=== PATIENT | male | born 1965 | race Caucasian/White ===

== ENCOUNTER 2018-07-13 01:45 | Outpatient (CLI) | payer OTHER, SELFPAY ==
[2018-07-13 07:49] LABS: HCT 44.1 % (40.0-50.0); HGB 15.4 g/dL (13.5-17.5); Mean Corp. HGB Concentration 34.9 g/dL (32.0-36.0); Mean Corpuscular Hemoglobin 30.9 pg (27.0-33.0); Mean Corpuscular Volume 88.6 fL (80-95); Mean Platelet Volume 10.7 fL (8.0-11.0); Platelet Count 217 x1000/uL (130-400); RBC 4.98 m/cumm (4.50-6.00); White Blood Cell Count 5.82 k/cumm (4.4-10.8)
[2018-07-13 08:49] LABS: ALT 60 U/L (12-78); AST 26 U/L (15-37); Albumin 4.1 g/dL (3.4-5.0); Alkaline Phosphatase 71 U/L (46-116); Anion Gap 10.6 mmol/L (3-11); BUN 23 mg/dL (7-18); Bilirubin, Total 0.6 mg/dL (0.2-1.0); CO2 25.4 mmol/L (21.0-32.0); CREATININE 1.26 mg/dL (0.70-1.30); Calcium 9.1 mg/dL (8.5-10.1); Chloride 105 mmol/L (98-107); Cholesterol 247 mg/dL (50-200); Glucose 89 mg/dL (70-100); HDL Cholesterol 37 mg/dL (40-60); LDL CHOLESTEROL 181 mg/dL (<100); Potassium 4.2 mmol/L (3.5-5.1); Sodium 141 mmol/L (136-145); Total Protein 7.1 g/dL (6.4-8.2); Triglyceride 126 mg/dL (30-150)
== END 2018-07-13 02:05 ==
PROVIDERS: PCP Family Medicine; Visit Provider Family Medicine
DX: Z00.00 Encounter for general adult medical examination without abnormal findings (principal); Z13.220 Encounter for screening for lipoid disorders; Z13.228 Encounter for screening for other metabolic disorders; Z13.0 Encounter for screening for diseases of the blood and blood-forming organs and certain disorders involving the immune mechanism
CPT/HCPCS: 36415; 80053; 80061; 83721; 85027

== ENCOUNTER 2018-08-05 12:42 | Outpatient (CLI) | payer OTHER, SELFPAY ==
--- NOTE | 2018-08-05 10:41 | DI.RAD_ITS ---
SYMPTOMS/DIAGNOSIS: LEFT KNEE PAIN, PATELLOFEMORAL ARTHRALGIA OF BOTH KNEES, M25.562, M22.2X1, M22.2X2, DISORDER OF BILATERAL KNEES, NO TRAUMA LEFT KNEE: Three views were obtained. There is slight hypertrophic spurring of the bones of the knee. No other abnormality seen.
== END 2018-08-05 13:02 ==
PROVIDERS: PCP Family Medicine; Visit Provider Family Medicine
DX: M25.562 Pain in left knee (principal); M22.2X1 Patellofemoral disorders, right knee; M22.2X2 Patellofemoral disorders, left knee; M76.892 Other specified enthesopathies of left lower limb, excluding foot
CPT/HCPCS: 73562

== ENCOUNTER 2019-05-31 07:00 | Outpatient (CLI) | payer OTHER, SELFPAY ==
[2019-05-31 13:13] LABS: HCT 46.4 % (40.0-50.0); HGB 15.7 g/dL (13.5-17.5); Mean Corp. HGB Concentration 33.8 g/dL (32.0-36.0); Mean Corpuscular Hemoglobin 30.3 pg (27.0-33.0); Mean Corpuscular Volume 89.6 fL (80-95); Mean Platelet Volume 10.8 fL (8.0-11.0); Platelet Count 269 x1000/uL (130-400); RBC 5.18 m/cumm (4.50-6.00); RBC Distribution Width 13.5 % (11.8-14.1)
[2019-05-31 13:33] LABS: ALT 78 U/L (16-63); AST 31 U/L (15-37); Albumin 4.4 g/dL (3.4-5.0); Alkaline Phosphatase 85 U/L (46-116); Anion Gap 12.3 mmol/L (3-11); BUN 17 mg/dL (7-18); Bilirubin, Total 0.6 mg/dL (0.2-1.0); CO2 25.7 mmol/L (21.0-32.0); CREATININE 1.25 mg/dL (0.70-1.30); Calcium 9.9 mg/dL (8.5-10.1); Calculated LDL 225 mg/dL; Chloride 104 mmol/L (98-107); Cholesterol 306 mg/dL (50-200); Glucose 97 mg/dL (70-100); HDL Cholesterol 58 mg/dL (40-60); Potassium 4.4 mmol/L (3.5-5.1); Sodium 142 mmol/L (136-145); Total Protein 7.8 g/dL (6.4-8.2); Triglyceride 118 mg/dL (30-150)
== END 2019-05-31 07:20 ==
PROVIDERS: PCP Family Medicine; Visit Provider Family Medicine
DX: E78.5 Hyperlipidemia, unspecified (principal); Z82.49 Family history of ischemic heart disease and other diseases of the circulatory system
CPT/HCPCS: 36415; 80053; 80061; 85027

== ENCOUNTER 2020-07-10 02:06 | Outpatient (CLI) | payer OTHER, SELFPAY ==
[2020-07-10 09:10] LABS: ALT 125 U/L (16-63); AST 60 U/L (15-37); Albumin 4.1 g/dL (3.4-5.0); Alkaline Phosphatase 87 U/L (46-116); Anion Gap 6.4 mmol/L (3-11); BUN 19 mg/dL (7-18); Bilirubin, Total 0.6 mg/dL (0.2-1.0); CO2 28.6 mmol/L (21.0-32.0); CREATININE 1.53 mg/dL (0.70-1.30); Calcium 9.2 mg/dL (8.5-10.1); Calculated LDL 192 mg/dL (<100); Chloride 103 mmol/L (98-107); Cholesterol 259 mg/dL (<200); Estimated GFR 47.67 (mL/min/1.73m2); Glucose 90 mg/dL (74-106); HDL Cholesterol 45 mg/dL (40-60); Potassium 4.5 mmol/L (3.5-5.1); Sodium 138 mmol/L (136-145); Total Protein 7.1 g/dL (6.4-8.2); Triglyceride 112 mg/dL (<150)
== END 2020-07-10 02:26 ==
PROVIDERS: PCP Family Medicine; Visit Provider Family Medicine
DX: Z00.00 Encounter for general adult medical examination without abnormal findings (principal); E78.5 Hyperlipidemia, unspecified; Z82.49 Family history of ischemic heart disease and other diseases of the circulatory system
CPT/HCPCS: 36415; 80053; 80061

== ENCOUNTER 2020-08-01 01:59 | Outpatient (CLI) | payer OTHER, SELFPAY ==
[2020-08-01 11:21] LABS: ALT 113 U/L (16-63); AST 45 U/L (15-37); Albumin 4.1 g/dL (3.4-5.0); Alkaline Phosphatase 90 U/L (46-116); Bilirubin, Direct 0.14 mg/dL (0.00-0.20); Bilirubin, Total 0.7 mg/dL (0.2-1.0); Total Protein 7.2 g/dL (6.4-8.2)
== END 2020-08-01 02:19 ==
PROVIDERS: PCP Family Medicine; Visit Provider Family Medicine
DX: R79.89 Other specified abnormal findings of blood chemistry (principal)
CPT/HCPCS: 36415; 80076

== ENCOUNTER 2020-08-25 01:23 | Outpatient (CLI) | payer OTHER, SELFPAY ==
--- NOTE | 2020-08-25 06:30 | DI.US_ITS ---
EXAM: US ABDOMEN CLINICAL HISTORY: Elevated liver function tests work-up,R79.89 TECHNIQUE: Ultrasound abdomen performed using standard protocol. COMPARISON: No exams were available for comparison FINDINGS: LIVER: The liver is mildly enlarged and shows diffuse moderate increased echogenicity and decreased t hrough transmission, consistent with fatty infiltration.. No focal liver lesions are seen.. GALLBLADDER: No evidence of cholelithiasis. No evidence of wall thickening. No pericholecystic fluid identified. VERMA'S SIGN: Negative. BILIARY SYSTEM: No intrahepatic or extrahepatic biliary ductal dilation. KIDNEYS: Kidneys are symmetric in size. No evidence of renal calculi. No evidence of hydronephrosis. No renal mass identified. 13 millimeter exophytic cyst near the upper pole of the left kidney. PANCREAS: Normal where visualized. SPLEEN: Not enlarged. ABDOMINAL AORTA AND IVC: Visualized portions normal caliber. ASCITES: None seen. IMPRESSION: Moderate hepatic steatosis. DATA REPOSITORY:
== END 2020-08-25 01:43 ==
PROVIDERS: PCP Family Medicine; Visit Provider Family Medicine
DX: K76.0 Fatty (change of) liver, not elsewhere classified (principal); R79.89 Other specified abnormal findings of blood chemistry
CPT/HCPCS: 76700

== ENCOUNTER 2020-09-04 02:36 | Outpatient (CLI) | payer OTHER, SELFPAY ==
[2020-09-04 10:11] LABS: Iron 137 ug/dL (65-175); Total Iron Binding Capacity 332 ug/dL (250-450); Transferrin Sat 41 % (20-55)
[2020-09-04 10:23] LABS: Ferritin 142 ng/mL (26-388); TSH 2.68 uIU/mL (0.36-3.74)
[2020-09-05 10:17] LABS: HBs Antibody, Qual Negative (See Note); HBs Antibody, Quant <3.1 mIU/mL (See Note); Hepatitis B Core Antibody Negative (Negative); Hepatitis B surface Ag Negative (Negative); Hepatitis C Ab w Rflx HCV PCR Negative (Negative)
== END 2020-09-04 02:56 ==
PROVIDERS: PCP Family Medicine; Visit Provider Family Medicine
DX: R79.89 Other specified abnormal findings of blood chemistry (principal); Z11.59 Encounter for screening for other viral diseases
CPT/HCPCS: 36415; 86704; 86706; 86803; 87340; 82728; 83540; 83550; 84443

== ENCOUNTER 2020-12-15 02:47 | Outpatient (CLI) | payer OTHER, SELFPAY ==
[2020-12-15 10:18] LABS: Hemoglobin A1C 5.5 % (<5.7)
[2020-12-15 10:26] LABS: BUN 19 mg/dL (7-18); CREATININE 1.3 mg/dL (0.70-1.30); Calculated LDL 210 mg/dL (<100); Cholesterol 282 mg/dL (<200); Estimated GFR 57.31 (mL/min/1.73m2); HDL Cholesterol 45 mg/dL (40-60); Triglyceride 137 mg/dL (<150)
== END 2020-12-15 02:48 | disposition home or self-care (01) ==
LOC: LBO 02:47
PROVIDERS: PCP Family Medicine; Visit Provider Nurse Practitioner Family
DX: E78.5 Hyperlipidemia, unspecified (principal); R79.89 Other specified abnormal findings of blood chemistry; Z13.1 Encounter for screening for diabetes mellitus
CPT/HCPCS: 36415; 80061; 84520; 82565; 83036

== ENCOUNTER 2021-01-02 02:25 | Outpatient (CLI) | payer OTHER, SELFPAY ==
[2021-01-03 12:54] LABS: COVID-19 RT-PCR UVMMC Result Negative (Negative)
== END 2021-01-02 02:26 | disposition home or self-care (01) ==
LOC: LBO 02:25
PROVIDERS: PCP Family Medicine; Visit Provider Family Medicine
DX: Z20.822 Contact with and (suspected) exposure to COVID-19 (principal)
CPT/HCPCS: U0003

== ENCOUNTER 2021-01-05 02:25 | Outpatient (CLI) | payer OTHER, SELFPAY ==
[2021-01-06 12:23] LABS: COVID-19 RT-PCR UVMMC Result Negative (Negative)
== END 2021-01-05 02:26 | disposition home or self-care (01) ==
LOC: LBO 02:25
PROVIDERS: PCP Family Medicine; Visit Provider Family Medicine
DX: Z20.822 Contact with and (suspected) exposure to COVID-19 (principal)
CPT/HCPCS: U0003

== ENCOUNTER 2021-07-09 02:41 | Outpatient (CLI) | payer OTHER, SELFPAY ==
[2021-07-09 09:54] LABS: Calculated LDL 121 mg/dL (<100); Cholesterol 189 mg/dL (<200); HDL Cholesterol 43 mg/dL (40-60); Triglyceride 126 mg/dL (<150)
== END 2021-07-09 02:42 | disposition home or self-care (01) ==
LOC: LBO 02:42
PROVIDERS: PCP Nurse Practitioner Family; Visit Provider Nurse Practitioner Family
DX: E78.5 Hyperlipidemia, unspecified (principal)
CPT/HCPCS: 36415; 80061

== ENCOUNTER 2021-07-17 16:16 | Outpatient (REF) | payer OTHER, SELFPAY ==
[2021-07-18 19:13] LABS: COVID-19 RT-PCR UVMMC Result Negative (Negative)
== END 2021-07-17 16:17 | disposition home or self-care (01) ==
LOC: LBN 16:16
PROVIDERS: PCP Nurse Practitioner Family; Visit Provider Physician Assistant
DX: Z20.822 Contact with and (suspected) exposure to COVID-19 (principal); R05.8 Other specified cough
CPT/HCPCS: U0003

== ENCOUNTER → 2022-05-16 03:03 | Outpatient (CLI) | payer BC, SELFPAY ==
--- NOTE | 2022-05-16 08:30 | DI.RAD_ITS ---
Exam(s) XR CHEST 2V PA LATERAL EXAM: XR CHEST 2V PA LATERAL CLINICAL HISTORY: Continued cough after COVID in early March, R05.9. TECHNIQUE: 2D digital imaging was performed. COMPARISON: No exams were available for comparison FINDINGS: 2 views: Heart size is normal. The mediastinum is not widened. Right lung is clear. There increased markings in left lower lobe retrocardiac region. Either infilt rate or possible mass. No pleural effusions. Round densities in the left hilum may be vessels visualized and on or possibly calcified lymph nodes. IMPRESSION: Left lower lobe density either infiltrate or mass. Recommend follow-up CT scan. DATA REPOSITORY: RADIATION DOSE DELIVERED:
== END ==
PROVIDERS: PCP Nurse Practitioner Family; Visit Provider Nurse Practitioner Family
DX: R05.8 Other specified cough (principal); R91.8 Other nonspecific abnormal finding of lung field; Z86.16 Personal history of COVID-19
CPT/HCPCS: 71046

== ENCOUNTER → 2022-05-24 00:23 | Outpatient (CLI) | payer BC, SELFPAY ==
--- OUTSIDE RECORDS SUMMARY | 2022-05-24 00:25 | XMS_ITS | Encounter Summary ---
:1965 Author Organization [facility] Address [address] [place] [address] Care Team Providers Name Role Phone Unknown, Provider Primary Care Provider Encounter Details Date Type Department Care Team Description 01/05/2021 Lab Requisition [facility] Outr Resulting Lab, Pathology & Laboratory Provider [facility] [address] [place] [address] Social History Tobacco Use Types Packs/Day Years Used Date Never Assessed Sex Assigned at Date Recorded Not on file documented as of this encounter Plan of Treatment Not on filedocumented as of this encounter Procedures Procedure Name Priority Date/Time Associated Diagnosis Comme nts COVID-19 TEST [facility] Today 01/05/2021 9:40 EDT LAB PCR COVID-19 TESTING Routine 01/05/2021 9:40 EDT Resu lts for this procedure are i n the results section. documented in this encounter Results COVID-19 TEST [facility] PCR (01/05/2021 9:40 EDT) Specimen Swab - Entire nasopharynx (body structur e) Performing Organization Address City/State/ZIP Code Phon e Number [facility] [address] [place] [address] SERVICES COVID-19 TESTING (01/05/2021 9:40 EDT) COVID-19 rt-PCR Negative Negative [facility] Result Comment: [facility] This test has not been FDA c leared or approved. This test has been authorized by FDA under an EUA for use by authorized laboratories. This test has been authorized only for detection of nucleic acid fro SERVICES m 2019-nCoV, not for any oth er viruses or pathogens. This test is only authorized for the duration of the declaration that circumstances exist justifying the authorization of emergency use of in vitro d iagnostic tests for detectio n and/or diagnosis of 2019-nCoV under section 564(b)(1) of Act, 21 U.S.C ?? 360bbb-3(b) (1), unless the authorization is terminated or revoked sooner. Negative results do not prec lude 2019-nCoV infection and should not be used as the sole basis for treatment or other patient management decisions. Negative results must be combined with clinical observa tions, patient history, and epidemiological informatio n. Testing was performed using the lucinda SARS-CoV-2 assay ([employer] on the Lucinda 6800 System Performing Lab [facility] [address] [facility] SERVICES Specimen Swab Performing Organization Address City/State/ZIP Code Phon e Number [facility] [address] [place] [address] SERVICES documented in this encounter Visit Diagnoses Not on filedocumented in this encounter Care Teams Dental Ceramist Assistant Relationship Specialty Start Date End Date Unknown, Provider, PCP - General 07/20/15 documented as of this encounter
--- OUTSIDE RECORDS SUMMARY | 2022-05-24 00:25 | XMS_ITS | Encounter Summary ---
:1965 Author Organization [facility] [place] [address] Care Team Providers Name Role Phone David Elizabeth MD Primary Care Provider Reason for Visit Consultation (Routine) - Specialty Diagnoses / Procedures Referred By Contact Refer red To Contact Gastroenterology Diagnoses Other specified abnormal findings of blood chemistry Hyperlipidemia, unspecified Family history of ischemic heart disease and other diseases of the circulatory system Liver- elevated LFTs, hyperlipidemia David Elizabeth MD [facility] Gastro 4l Procedures consult [address] [place] [facility] [address] [place], [place] [address] 1 [place] [address] Phone: Fax: Referral ID Status Reason Start Date Expiration Date Visits V isits Requested Authorized [id number] Consult, Test 09/23/2020 03/23/2021 6 6 & Treat PCP Updated and/or Approved Encounter Details Date Type Department Care Team Description 09/28/2020 Office Visit Gastroenterology at [facility] Kevin Lynn Abnormal liver function test s (Primary Dx); [facility] NIKITA Gore Fatty liver; [place] [address] [facility] Hyperlipidemia, unspecified hyperlipidemia type; [phone] Center Class 1 obesity with body mass index (BM I) of 30.0 to 30.9 in adult, unspecified obesity type, unspecified whether [place] [address] Social History Tobacco Use Types Packs/Day Years Used Date Never Smoker Smokeless Tobacco: Never Used Sex Assigned at Date Recorded Not on file documented as of this encounter Last Filed Vital Signs Vital Sign Reading Time Taken Comments Blood Pressure 139/77 09/28/2020 1:52 PM EST Pulse 61 09/28/2020 1:52 PM EST Temperature - - Respiratory Rate - - Oxygen Saturation - - Inhaled Oxygen Concentration - - Weight 106.3 kg (234 lb 4.8 oz) 09/28/2020 1:52 PM EST Height 188 cm (6' 2) 09/28/2020 1:52 PM EST Body Mass Index 30.08 09/28/2020 1:52 PM EST documented in this encounter Progress Notes Kevin Lynn PA - 09/28/2020 2:00 PM EST Images from the original note were not included. HEPATOLOGY NEW PATIENT CONSULTATION Patient: Scout Dodson Sex: male Date of : 1965 HIGH DENSITY [employer]ESS LABORER: Kevin Lynn PA-C PCP: David Elizabeth MD Requesting Provider: David Elizabeth 09/28/20 REASON FOR CONSULTATION: Elevated LFTs PROBLEM LIST Patient Active Problem List Diagnosis Code ??? Fatty liver K76.0 ??? Hyperlipidemia E78.5 ??? Class 1 obesity in adult E66.9 HISTORY OF PRESENT ILLNESS Scout Dodson is a 55 y.o. male referred to hepatology clinic for evaluation of elevated liver function tests. He states that recently his liver tests were abnormal on routine blood work, which was again checkeda month later and continued to be abnormal. He has been in talks with his primary care doctor about treating high cholesterol with medication, but there has been some hesitancy because of his liver tests. His father had coronary artery disease. He does not take any medications currently and denies anyherbal or dietary supplements. He states that he has never been told about any previous problems with his liver that he is aware of. In regard to alcohol use, he states he drinks 2-3 beers on Fridays and Saturdays, but otherwise none during the week. He may have drank a little heavier in college, but has not been a heavy drinker through most of his adult life. He otherwise has no complaints today. He is feeling quite well and healthy. He has no specific GI related complaints at all. He notes that his tells him that he snores sometimes at night, though he denies any daytime fatigue more than expected. He is not sure if he is ever been screened for thyroid disease or diabetes. REVIEW OF SYSTEMS General: Denies weight loss, fatigue, poor sleep, fever, chills, night sweats Skin: Denies new rashes, easy bruising, jaundice EENT: Denies blurred vision or change in vision, hearing loss, sinus problems, dry eyes or mouth Endocrine: Denies change in tolerance to heat or cold, excessive thirst Cardiovascular: Denies chest pain, palpitations or irregular heart beat, pain in legs with walking, swelling in feet Pulmonary: Denies SOB, persistent cough, coughing up blood, asthma or wheezing Gastrointestinal: Denies poor appetite, abdominal pain, indigestion, trouble swallowing, diarrhea, constipation, nausea/vomitting, rectal bleeding or blood in stools Musculoskeletal: Denies pain in joints, back pain, neck or shoulder pain, muscle cramping, movement of legs at night Neurologic: Denies blackouts or loss of consciousness, headache, weakness or numbness in legs or arms, tremor, worsening memory and concentration Genitourinary: Denies frequent urination, blood in urine Psychiatric: Denies changes in mood or behavior, anxiety MEDICATIONS No current outpatient medications on file. No current facility-administered medications for this visit. ALLERGIES No Known Allergies SOCIAL HISTORY Occupation: [employer] Marital status: , 2 children Smoking: None Alcohol: See HPI Other drug: None, did smoke marijuana in college Hepatitis C Risk Factors: IV drugs? Never Intranasal drugs? Never Tattoos? One, 30 years ago, professional service? None Blood transfusions? None Close contact/relationship with known hepatitis? None FAMILY HISTORY Negative except as noted below Medical problem Family member Medical Problem Family member Medical Problem Family member Alcohol drug Problem Kidney disease Mental illness Anemia or Blood Disease Liver disease Depression Diabetes Liver cancer Seizure High blood pressure Stroke Lung disease Heart disease Father Clotting problems Colon Cancer High cholesterol Immune disorders Other Cancer Father pancreatic, sister breast PHYSICAL EXAM Vitals: 09/28/20 1352 BP: 139/77 BP Location ([facility]): Left arm Patient Position: Sitting BP Cuff Sizes: Adult (25-34 cm) Pulse: 61 Weight: 106.3 kg (234 lb 4.8 oz) Height: 188 cm (6' 2) Body mass index is 30.08 kg/m??. Constitutional: Well appearing, appropriate, no acute distress Skin: No cyanosis, no palmar erythema, no jaundice, no spider angiomata Head: Normocephalic, PERRLA, sclerae anicteric, oropharynx within normal limits CVS: Not assessed Lungs: Not assessed Abdomen: Nontender, nondistended, no hepatosplenomegaly, no masses, no fluid wave, no umbilical hernia, no caput medussae, positive bowel sounds Neurologic: Alert and oriented x 3, no asterixis or tremor Extremities: No edema, no clubbing, no muscle wasting, no joint swelling RESULTS No results found for this or any previous visit (from the past 24 hour(s)). Non-DH Laboratory: 08/01/20 @ [facility]: 07/10/20: 05/31/19: Imaging: Ultrasound 08/25/20 @ [facility]: Fibroscan Results Today: Median kPa: 6.3 Mean IQR: 14% (goal is <30 %) Number of valid measurements: 10 (10 required) Number of invalid measurements: 0 Predicted fibrosis stage: F0-F1 CAP (dB/m): 348 ASSESSMENT/PLAN Scout Dodson is a 55 y.o. male with hyperlipidemia who was found to have significantly elevatedtransaminases on routine lab work in June 2020, more so than the previous year in May 2019.He had an abdominal ultrasound last month suggesting moderate hepatic steatosis but otherwise unremarkable. He has been completely asymptomatic from a liver/GI standpoint. He drinks regular alcohol butonly on weekends, 2-3 drinks daily. I believe that given his hyperlipidemia and modest overweight/obesity status, this is more likely a case of nonalcoholic fatty liver disease (NAFLD), or perhaps nonalcoholic steatohepatitis (DOAN). A FibroScan today was very reassuring suggesting no significant fibrosis. He does however have high-grade steatosis consistent with ultrasound findings. Remainder of today's history and physical exam were entirely benign. Fatty liver disease is one of the most common causes of liver disease in the [place]. It is regarded as the liver manifestation of metabolic syndrome, associated with cardiovascular disease and predisposition to developing diabetes. The goals of treatment are treating or managing risk factors. We discussed the importance of lifestyle interventions and making healthy food choices as the backboneof treatment for this condition. We set realistic weight loss goals; goal is to focus on loosing 10-15% of total body weight over a year by incorporating regular exercise, lifestyle modifications, and healthy food choices including portion control. In addition I would recommend avoiding high fructose corn syrup and artifical sweeteners. Diet should be low in carbohydrates and high in protein, similarto a diabetic or Mediterranean diet. I do believe however it is important to rule out other causes of elevated LFTs and fatty appearing liver on imaging. He previously had normal iron studies, however no ferritin was checked. It would be reasonable to check a ferritin now, though if elevated still likely would not require work-up for hemochromatosis given his normal iron saturation. Much less likely etiologies that should be ruled out include viral hepatitis, autoimmune hepatitis, alpha-1 antitrypsin deficiency, and Von disease. Given he is asymptomatic, I do not believe it is necessary to screen for celiac disease. Plan: -Await remaining lab results. -Regarding cholesterol management, if his lab work-up is entirely negative, I do recommend he start a statin. Lipophilic statins (atorvastatin, simvastatin), have recently been shown to be very beneficial in the setting of DOAN and I believe the benefits outweigh the risks at this point. He should have LFTs rechecked approximately 1 month after initiating a statin. -Diet and lifestyle changes as above. Provided information on Mediterranean diet. -He should cut out all high fructose corn syrup. -Black coffee 2 to 3 cups daily recommended. -We will also check a hemoglobin A1c. If this is normal, he may benefit from vitamin E supplementation. -Consider limiting alcohol, though I do not believe his current use is high risk. -Hepatology follow-up TBD based on above work-up. I likely will see him in 1 year with repeat labs prior and FibroScan if work-up is negative. Time spent reviewing records prior to this encounter: 3 minutes Time spent during encounter with patient including counselin minutes Time spent documenting encounter after office visit: 20 minutes Approximate total time devoted to this single encounter: 88 minutes This is exclusive of the time spent performing the Fibroscan procedure. Patient was seen and examined with OMEGA Reese under my supervision. Kevin Lynn PA-C Section of Gastroenterology [place] [address] Copy: MD David Kay documented in this encounter Procedure Notes Kevin Lynn PA - 09/28/2020 2:00 PM ESTAssociated Order(s): FIBROSCAN Procedure(s): FIBROSCAN Pre-Procedure Diagnose(s): Abnormal liver function tests; Fatty liver [facility] Liver Fibrosis Assessment Report Indication: Elevated LFTs, fatty liver Performed by: NIKITA Ty Procedure: Vibration Controlled Transient Elastography (VCTE) or Fibroscan [place] Protocol: Patient's identity, procedure and site were verified, confirmatory pause performed. Discussed procedure including risks and potential complications. Questions answered. Patient verbalizes understanding and wishes to proceed with Fibroscan assessment. Patient was placed in the supine position with right arm in maximum abduction to allow optimal exposure of right lateral abdomen. Patient was briefly assessed. Testing was performed in the mid-axillarylocation. 50Hz Shear Wave pulses were applied and the resulting Shear Wave and Propagation Speed wasdetected with a 3.5MHz ultrasonic signal, using the Fibroscan probe. Skin to liver capsule distance and liver parenchyma were accessed during the entire examination with the Fibroscan probe. Patient was instructed to breathe normally and abstain from sudden movements during the procedure. At least tenSheer Waves were produced; individual measurements of each Shear Wave were calculated. Patient tolerated the procedure well with no complications. Fibroscan Results: Median kPa: 6.3 Mean IQR: 14% (goal is <30 %) Number of valid measurements: 10 (10 required) Number of invalid measurements: 0 Predicted fibrosis stage: F0-F1 CAP (dB/m): 348 Estimated steatosis grade: 3/3 % hepatocytes affected: > 66% Interpretation: Based on this Fibroscan result, history, clinical examination and review of laboratory and radiological data, this patient likely has stage 0-1 liver fibrosis and grade 3 steatosis affecting greater than 66% of hepatocytes. documented in this encounter Plan of Treatment Not on filedocumented as of this encounter Procedures Procedure Name Priority Date/Time Associated Comments Diagnosis HEMOGRAM Routine 09/28/2020 3:35 PM Abnormal liver Results for this EST function tests procedure are in Fatty liver the results section. DIFFERENTIAL, Routine 09/28/2020 3:35 PM Abnormal liver Result s for this AUTOMATED EST function tests procedure are in Fatty liver the results section. HC HEPATITIS C Routine 09/28/2020 3:35 PM Abnormal liver Resul ts for this ANTIBODY EST function tests procedure are in the results section. HC HEPATITIS A, TOTAL Routine 09/28/2020 3:35 PM Abnormal live r Results for this EST function tests procedure are in the results section. HC CERULOPLASMIN Routine 09/28/2020 3:35 PM Abnormal liver Res ults for this EST function tests procedure are in Fatty liver the results section. HC HEPATITIS B CORE AB Routine 09/28/2020 3:35 PM Abnormal marcy er Results for this EST function tests procedure are in the results section. HC PCH SMOOTH MUSCLE Routine 09/28/2020 3:35 PM Abnormal liver Results for this AB, SERUM EST function tests procedure are in the results section. HC HEPATITIS B SURFACE Routine 09/28/2020 3:35 PM Abnormal marcy er Results for this AB EST function tests procedure are in the results section. HC HEPATITIS B SURFACE Routine 09/28/2020 3:35 PM Abnormal marcy er Results for this AG EST function tests procedure are in the results section. HC CBC,PLT & AUTO DIFF Routine 09/28/2020 3:35 PM Abnormal marcy er EST function tests Fatty liver HC ANTINUCLEAR Routine 09/28/2020 3:35 PM Abnormal liver Resul ts for this ANTIBODY,SERUM EST function tests procedure a re in the results section. HC VENIPUNCTURE Routine 09/28/2020 3:35 PM Abnormal liver Resu lts for this EST function tests procedure are in Fatty liver the results section. HC HEMOGLOBIN A1C Routine 09/28/2020 3:35 PM Fatty liver Resu lts for this EST procedure are i n the results section. HC IGG, SERUM Routine 09/28/2020 3:35 PM Abnormal liver Result s for this EST function tests procedure are in the results section. HC FERRITIN, SERUM Routine 09/28/2020 3:35 PM Fatty liver Res ults for this EST procedure are i n the results section. HEPATIC FUNCTION PANEL Routine 09/28/2020 3:35 PM Abnormal marcy er Results for this EST function tests procedure are in Fatty liver the results section. [id number] Routine 09/28/2020 2:00 PM Abnormal liver Results for this EST function tests procedure are in Fatty liver the results section. documented in this encounter Results Differential, Automated (09/28/2020 3:35 PM EST) P athologist Signature Neutrophils % 54.8 % [facility] Neutr Abs (ANC) 3.64 1.70 - [facility] 6.10 [facility] x10(3)/[facility] LABORATORY Lymphocytes % 34.2 % [facility] Lymphocytes Abs 2.3 0.9 - 3.2 [facility] x10(3)/[facility] LABORATORY Monocytes % 7.2 % [facility] Monocyte Abs 0.5 0.3 - 0.9 [facility] x10(3)/[facility] LABORATORY Eosinophils % 2.6 % [facility] Eosinophils Abs 0.2 0.0 - 0.4 [facility] x10(3)/[facility] LABORATORY Basophils % 0.9 % [facility] Basophils Abs 0.1 0.0 - 0.1 [facility] x10(3)/[facility] LABORATORY Immature Gran % 0.30 % [facility] Comment: Immature granulocytes(IG's)percentage an d absolute count will include metamyelocytes, myelocytes, and promyelo cytes. Blood smears from CBCs yielding IG's will be scanned manually for concor dance. If this scan disagrees with the automated IG or if promyelocytes are not ed, a manual differential will be performed. Ava Gran Abs 0.02 0.00 - 0.04 x10(3)/[facility] LABORATORY Specimen Anatomical Collection Method Collection Time Receive d Time (Source) Location / / Volume Laterality Blood specimen 09/28/2020 3:35 PM 021 4:03 (specimen) EST PM EST Resulting Agency Comment Spec In Lab Kevin [facility] HEMATOLOGY ORDERABLES Performing Organization Address City/State/[place] [address] Hemogram (09/28/2020 3:35 PM EST) athologist Signature WBC 6.6 4.0 - 9.5 [facility] LABORATORY RBC 4.99 4.58 - ALINE RAMIREZSHIN 5.54 [facility] x10(6)/[facility] LABORATORY Hemoglobin 15.2 13.7 - [place] SHIN 16.5 gm/dL [facility] Hematocrit 44.3 40.5 - [place] SHIN 48.5 % [facility] MCV 88.8 82.9 - [place] SHIN 93.1 [facility] LABORATORY MCH 30.5 27.5 - [place] SHIN 32.1 pg [facility] MCHC 34.3 32.0 - [facility] 35.[facility] gm/dL [facility] Platelets 240 145 - 357 [facility] x10(3)/[facility] LABORATORY RDWSD 44.1 36.0 - [facility] SHIN 45.0 [facility] LABORATORY RDWCV 13.5 11.4 - [facility] SHIN 13.8 % [facility] MPV 10.1 7.6 - 12.9 [place] SHIN [facility] LABORATORY nRBC % Auto 0.0 % [facility] nRBC Abs Auto 0.000 0.000 - [facility] 0.000 [facility] x10(3)/[facility] LABORATORY Specimen Anatomical Collection Method Collection Time Receive d Time (Source) Location / / Volume Laterality Blood specimen 09/28/2020 3:35 PM 021 4:03 (specimen) EST PM EST Resulting Agency Comment Spec In Lab Kevin [facility] HEMATOLOGY ORDERABLES Performing Organization Address City/State/[place] [address] TSH (09/28/2020 3:35 PM EST) athologist Signature TSH 1.99 0.27 - 4.20 AL[place] GILLCOCK mcIU/mL [facility] Specimen Anatomical Collection Method Collection Time Receive d Time (Source) Location / / Volume Laterality Blood specimen 09/28/2020 3:35 PM 021 4:03 (specimen) EST PM EST Resulting Agency Comment Spec In Lab Bibi Eugene MD CHEMISTRY ORDERABLES Performing Organization Address City/State/[place] [address] Hemoglobin A1c (09/28/2020 3:35 PM EST) athologist Signature Hemoglobin A1C 5.2 4.3 - 5.6 [facility] Comment: Reference Range: 4.3 - 5.6% 5.7 - 6.4% - Increased Risk of Developin g Diabetes Mellitus >= 6.5% - Consistent with diagnosis of D iabetes Mellitus In the absence of hyperglycemia (i.e. pl asma glucose > 200 mg/dL) or classic symptoms of hyperglycemia a repeat measu rement of HbA1c should be performed on a separate sample to confirm the diagnos is. Diagnosis and Classification of Diabetes Mellitus, Diabetes Care 2013; 36: Suppl. 1, M57-33 Est Avg Gluc 102 mg/dL [facility] Comment: eAG equivalents for HbA1c percentages: HbA1c(%) ?eAG(mg/dL) 6.0 ?126 6.5 ?140 7.0 ?154 7.5 ?169 8.0 ?183 8.5 ?197 9.0 ?212 9.5 ?226 10.0 ? 240 Limitations: The eAG calculation has not been validated on women, individuals below 18 years old and above 70 years old, and individuals with hemoglobinopathies. Additional resources are available on ADA website. Scott CANALES, Linda J, Vivek R, et al. ??Tr anslating the A1C assay into estimated average glucose values. ??Diabetes Care 2008:31(8):9659-6309. Specimen Anatomical Collection Method Collection Time Receive d Time (Source) Location / / Volume Laterality Blood specimen 09/28/2020 3:35 PM 021 4:13 (specimen) EST PM EST Resulting Agency Comment Spec In Lab Bibi Eugene MD CHEMISTRY ORDERABLES Performing Organization Address [facility] Phon e Number [address] Hepatitis A Antibody, Total (09/28/2020 3:35 PM EST) Analysis Performed At Patho logist Time Signature Hepatitis A Ab Negative Negative [facility] LABORATORY Specimen Anatomical Collection Method Collection Time Receive d Time (Source) Location / / Volume Laterality Blood specimen 09/28/2020 3:35 PM 021 4:03 (specimen) EST PM EST Resulting Agency Comment Spec In Lab Bibi Eugene MD IMMUNOLOGY ORDERABLES Performing Organization Address City/[facility] [place] [address] Hepatitis B Surface Antigen (09/28/2020 3:35 PM EST) Analysis Performed At Patho logist Time Signature HepB Surface Negative Negative [facility] LABORATORY Specimen Anatomical Collection Method Collection Time Receive d Time (Source) Location / / Volume Laterality Blood specimen 09/28/2020 3:35 PM 021 4:03 (specimen) EST PM EST Resulting Agency Comment Spec In Lab Bibi Eugene MD CHEMISTRY ORDERABLES Performing Organization Address City/[facility] [place] [address] Hepatitis B Surface Antibody (09/28/2020 3:35 PM EST) P athologist Signature HepB Surface <3.5 IU/L [facility] Ab Quant [facility] Comment: HepB Surface Ab Quant: Unvaccinated: < 8.5 IU/L Vaccinated: > 11.5 IU/L HepB Surface Ab Negative [facility] Comment: Patient is presumed to be not vaccinated or immune to HBV infection. Expected Results: Vaccinated: Positive Unvaccinated: Negative Specimen Anatomical Collection Method Collection Time Receive d Time (Source) Location / / Volume Laterality Blood specimen 09/28/2020 3:35 PM 021 4:03 (specimen) EST PM EST Resulting Agency Comment Spec In Lab Bibi Eugene MD IMMUNOLOGY ORDERABLES Performing Organization Address City/[facility]/ZIP [place] [address] Hepatitis B Core Antibody, Total (09/28/2020 3:35 PM EST) Analysis Performed At Patho logist Time Signature Hep B Core Ab Negative Negative [facility] Specimen Anatomical Collection Method Collection Time Receive d Time (Source) Location / / Volume Laterality Blood specimen 09/28/2020 3:35 PM 021 4:03 (specimen) EST PM EST Resulting Agency Comment Spec In Lab Bibi Eugene MD CHEMISTRY ORDERABLES Performing Organization Address City/[facility]/ZIP Code Phon e Number [address] Hepatitis C Antibody (09/28/2020 3:35 PM EST) Analysis Performed At Patho logist Time Signature Hepatitis C Ab Negative Negative [facility] Specimen Anatomical Collection Method Collection Time Receive d Time (Source) Location / / Volume Laterality Blood specimen 09/28/2020 3:35 PM 021 4:03 (specimen) EST PM EST Resulting Agency Comment Spec In Lab Bibi Eugene MD IMMUNOLOGY ORDERABLES Performing Organization Address City/[facility] [place] [address] IgG (09/28/2020 3:35 PM EST) P athologist Signature IgG 1,029 700 - 1,600 [facility] mg/dL [facility] Comment: Pediatric Reference Intervals obtained f rom the Caliper Reference Interval project. [email or web address] Specimen Anatomical Collection Method Collection Time Receive d Time (Source) Location / / Volume Laterality Blood specimen 09/28/2020 3:35 PM 021 4:03 (specimen) EST PM EST Resulting Agency Comment Spec In Lab Bibi Eugene MD IMMUNOLOGY ORDERABLES Performing Organization Address City/[facility]/ZIP Code Phon e Number [place] [phone] [facility] [address] Smooth Muscle Antibody (09/28/2020 3:35 PM EST) P athologist Signature Sm Muscle Ab Negative Negative [facility] Comment: Negative: No further testing will be per formed ADDITIONAL INFORMATIO N This test was developed and its performa nce characteristics determined by [facility] in a manner co nsistent with CLIA requirements. This test has not been mili ared or approved by the U.S. Food and Drug Administration. Test Performed by: [facility] [address] [place] [address] Warehouse Delivery Driver: Satya Arguelles M.D. Ph. D.; CLIA# [id number] Specimen Anatomical Collection Method Collection Time Receive d Time (Source) Location / / Volume Laterality Blood specimen 09/28/2020 3:35 PM 021 (specimen) EST 10:50 AM EST Resulting Agency Comment Spec In Lab Bibi Eugene MD IMMUNOLOGY ORDERABLES Performing Organization Address [facility] Phon e Number [place] [phone] [facility] [address] YOEL ([facility]CGP/APD/NLH) (09/28/2020 3:35 PM EST) P athologist Signature YOEL Neg Neg [facility] Comment: Anti-nuclear antibodies were te sted using an indirect immunofluorescent assay. Specimen Anatomical Collection Method Collection Time Receive d Time (Source) Location / / Volume Laterality Blood specimen 09/28/2020 3:35 PM 021 7:22 (specimen) EST AM EST Resulting Agency Comment Spec In Lab Bibi Eugene MD IMMUNOLOGY ORDERABLES Performing Organization Address City/State/ZIP Code Phon e Number [address] Ferritin (09/28/2020 3:35 PM EST) athologist Signature Ferritin 154 30 - 400 [place] ng/mL [facility] Comment: Pediatric reference ranges not verified at [facility], interpret with caution. Reference ranges for females greater ted n 50 years of age approach values for men, i.e., 30-400 ng/mL. Specimen Anatomical Collection Method Collection Time Receive d Time (Source) Location / / Volume Laterality Blood specimen 09/28/2020 3:35 PM 021 4:03 (specimen) EST PM EST Resulting Agency Comment Spec In Lab Bibi Eugene MD CHEMISTRY ORDERABLES Performing Organization Address City[facility]/ZIP Code Phon e Number [address] Ceruloplasmin (09/28/2020 3:35 PM EST) athologist Signature Ceruloplasmin 22.5 15.0 - [place] 30.0 mg/dL [facility] Specimen Anatomical Collection Method Collection Time Receive d Time (Source) Location / / Volume Laterality Blood specimen 09/28/2020 3:35 PM 021 4:03 (specimen) EST PM EST Resulting Agency Comment Spec In Lab Bibi Eugene MD CHEMISTRY ORDERABLES Performing Organization Address City/State/ZIP [facility] Phon e Number [address] Hepatic Function Panel (09/28/2020 3:35 PM EST) athologist Signature Total Protein 7.3 6.1 - 8.0 [place] gm/dL [facility] Albumin 4.7 3.2 - 5.2 [place] gm/dL [facility] AST 28 0 - 39 [place] unit/L [facility] ALT 54 0 - 55 [place] unit/L [facility] Alk Phos 72 40 - 130 [place] unit/L [facility] Total 0.6 0.2 - 1.3 [place] Bilirubin mg/dL [facility] Bili, Direct 0.1 0.0 - 0.3 [facility] Specimen Anatomical Collection Method Collection Time Receive d Time (Source) Location / / Volume Laterality Blood specimen 09/28/2020 3:35 PM 021 4:03 (specimen) EST PM EST Resulting Agency Comment Spec In Lab Bibi Eugene MD CHEMISTRY ORDERABLES Performing Organization Address City/State/[place] [address] [id number] (09/28/2020 2:00 PM EST) Narrative Kevin Lynn PA - 09/28/2020 2:00 PM EST Kevin Lynn PA ? 09/28/2020 ??3:39 PM [facility] Liver Fibrosis Asses sment Report Indication: ?? Elevated LFTs, fatty live r Performed by: ??NIKITA Ty Procedure: Vibration Controlled Transien t Elastography (VCTE) or Fibroscan [place] Protocol: Patient's identity, procedure and site were verified, confirmatory pause performed. Discussed procedure including risks and potential complicati ons. Questions answered. Patient verbalizes understanding and wis hes to proceed with Fibroscan assessment. Patient was placed in the supine positio n with right arm in maximum abduction to allow optimal expos ure of right lateral abdomen. Patient was briefly assessed. T esting was performed in the mid-axillary location. 50Hz Shear Wa ve pulses were applied and the resulting Shear Wave and Propaga tion Speed was detected with a 3.5MHz ultrasonic signal, using t he Fibroscan probe. Skin to liver capsule distance and liver pare nchyma were accessed during the entire examination with the F ibroscan probe. Patient was instructed to breathe normally and a bstain from sudden movements during the procedure. At least ten Sheer Waves were produced; individual measurements of eac h Shear Wave were calculated. Patient tolerated the proced ure well with no complications. Fibroscan Results: Median kPa: 6.3 Mean IQR: 14% (goal is <30 %) Number of valid measurements: 10 (10 req uired) Number of invalid measurements: 0 Predicted fibrosis stage: F0-F1 CAP (dB/m): 348 Estimated steatosis grade: 3/3 % hepatocytes affected: > 66% Interpretation: Based on this Fibroscan result, history, clinical examination and review of laboratory and radiological da ta, this patient likely has stage 0-1 liver fibrosis and grade 3 steatosis affecting greater than 66% of hepatocytes. Bibi Eugene MD PROCEDURE/MINOR SURGICAL ORD ERABLES documented in this encounter Visit Diagnoses Diagnosis Abnormal liver function tests - Primary Other abnormal blood chemistry Fatty liver Other chronic nonalcoholic liver disease Hyperlipidemia, unspecified hyperlipidem ia type Class 1 obesity with body mass index (BM I) of 30.0 to 30.9 in adult, unspecified obesity type, unspecified whether seriou s comorbidity present documented in this encounter Care Teams Deputy Coroner Relationship Specialty Start Date End Date David Elizabeth MD PCP - General General Internal Medicine 09/27/[address] [place] [address] documented as of this encounter
--- OUTSIDE RECORDS SUMMARY | 2022-05-24 00:25 | XMS_ITS | Encounter Summary ---
:1965 Author Organization [facility] Address [address] [place] [id number] Care Team Providers Name Role Phone Unknown, Provider Primary Care Provider Encounter Details Date Type Department Care Team Description 01/02/2021 Lab Requisition [facility] Outr Resulting Lab, Pathology & Laboratory Provider General acute hospital [address] [place] [address] Social History Tobacco Use Types Packs/Day Years Used Date Never Assessed Sex Assigned at Date Recorded Not on file documented as of this encounter Plan of Treatment Not on filedocumented as of this encounter Procedures Procedure Name Priority Date/Time Associated Diagnosis Comme nts COVID-19 TEST [facility] Today 01/02/2021 9:00 EDT LAB PCR COVID-19 TESTING Routine 01/02/2021 9:00 EDT Resu lts for this procedure are i n the results section. documented in this encounter Results COVID-19 TEST [facility] PCR (01/02/2021 9:00 EDT) Specimen Swab - Entire nasopharynx (body structur e) Performing Organization Address City/State/ZIP Code Phon e Number [facility] [address] [place] [address] SERVICES COVID-19 TESTING (01/02/2021 9:00 EDT) COVID-19 rt-PCR Negative Negative [facility] Result Comment: CENTER [facility]ORY This [...] was performed using the lucinda SARS-CoV-2 assay ([employer] on the Lucinda 6800 System Performing Lab Lucinda [address] [facility] Lab [facility] SERVICES Specimen Swab Performing Organization Address City/State/ZIP Code Phon e Number [facility] [address] [place] [address] SERVICES documented in this encounter Visit Diagnoses Not on filedocumented in this encounter Care Teams Gutter Mouth Cutter Relationship Specialty Start Date End Date Unknown, Provider, PCP - General 07/20/15 documented as of this encounter
--- OUTSIDE RECORDS SUMMARY | 2022-05-24 00:25 | XMS_ITS | Encounter Summary ---
:1965 Author Organization [facility] Address [address] [place] [address] Care Team Providers Name Role Phone Unknown, Provider Primary Care Provider Encounter Details Date Type Department Care Team Description 09/04/2020 Lab Requisition [facility] Outr Resulting Lab, Pathology & Laboratory Provider [facility] [address] [place] [id number] Social History Tobacco Use Types Packs/Day Years Used Date Never Assessed Sex Assigned at Date Recorded Not on file documented as of this encounter Plan of Treatment Not on filedocumented as of this encounter Procedures Procedure Name Priority Date/Time Associated Diagnosis Comme nts CHRONIC HEPATITIS Routine 09/04/2020 9:06 EST Res ults for this PROFILE, UNKNOWN procedure a re in TYPE the results section. documented in this encounter Results CHRONIC HEPATITIS PROFILE, UNKNOWN TYPE (09/04/2020 9:06 EST) Hep B Surface Ag Negative Negative [facility] Hep B Surface Ab, <3.1 See Note mIU/mL [facility] Quantitative Comment: [facility] Reference Range for Hep B Surface Ab, Quant: SERVICES Positive: >= 10.0 mIU/mL Negative: ??< 10.0 mIU/mL Patient is presumed to not be immune to infection with Hepatitis B Virus. Hep B Surface Ab, Negative See Note [facility] Qualitative Comment: [facility] Reference Range for Hep B Surface Ab, Qual: SERVICES Unvaccinated: ??Negative Vaccinated: ??Positive Hepatitis B Core Negative Negative [facility] Ab, Total [facility] Hep C Antibody Negative Negative [facility] Specimen Blood - Venous blood (substance) Performing Organization Address City/State/ZIP Code Phon e Number [facility] [address] [place] [address] SERVICES documented in this encounter Visit Diagnoses Not on filedocumented in this encounter Care Teams Cna Caregiver Relationship Specialty Start Date End Date Unknown, Provider, PCP - General 07/20/15 documented as of this encounter
--- OUTSIDE RECORDS SUMMARY | 2022-05-24 00:25 | XMS_ITS | Encounter Summary ---
:1965 Author Organization [facility] Address [address] [place] [address] Care Team Providers Name Role Phone Unknown, Provider Primary Care Provider Encounter Details Date Type Department Care Team Description 07/17/2021 Lab Requisition [facility] Outr Resulting Lab, Pathology & Laboratory Provider [facility] [address] [place] [address] Social History Tobacco Use Types Packs/Day Years Used Date Never Assessed Sex Assigned at Date Recorded Not on file documented as of this encounter Plan of Treatment Not on filedocumented as of this encounter Procedures Procedure Name Priority Date/Time Associated Diagnosis Comme nts COVID-19 TEST [facility] Today 07/17/2021 9:15 EDT LAB PCR COVID-19 TESTING Routine 07/17/2021 9:15 EDT Resu lts for this procedure are i n the results section. documented in this encounter Results COVID-19 TEST [facility] PCR (07/17/2021 9:15 EDT) Specimen Swab - Entire nasopharynx (body structur e) Performing Organization Address City/State/ZIP Code Phon e Number [facility] [address] [place] [address] SERVICES COVID-19 TESTING (07/17/2021 9:15 EDT) COVID-19 rt-PCR Negative Negative [facility] Result Comment: CENTER LABORATORY This [...] tions, patient history, and epidemiological informatio n. Performed on the [employer] Fusion instrument This is an appended report. ??These results have been appended to a previously preliminary verified report. Performing Lab Garrett [facility] Lab [facility] SERVICES Specimen Swab Performing Organization Address City/State/ZIP Code Phon e Number [facility] [address] [place] [address] SERVICES documented in this encounter Visit Diagnoses Not on filedocumented in this encounter Care Teams Auto Machinist Relationship Specialty Start Date End Date Unknown, Provider, PCP - General 07/20/15 documented as of this encounter
--- OUTSIDE RECORDS SUMMARY | 2022-05-24 00:25 | XMS_ITS | Encounter Summary ---
:1965 Author Organization [facility] [place] [address] Care Team Providers Name Role Phone David Elizabeth MD Primary Care Provider Encounter Details Date Type Department Care Team Description 10/09/2020 Orders Only Gastroenterology at [facility] Kevin Lynn NAFLD (nonalcoholic [facility] NIKITA Gore fatty liver disease) [place] [phone] [facility] [phone] [place] [address] Social History Tobacco Use Types Packs/Day Years Used Date Never Smoker Smokeless Tobacco: Never Used Sex Assigned at Date Recorded Not on file documented as of this encounter Plan of Treatment Scheduled Orders Name Type Priority Associated Diagnoses Order S chedule CBC (with Diff) Lab Routine NAFLD (nonalcoholic Expec papa: 10/09/2021 fatty liver disease) (Approx imate), Expires: 2021 Comprehensive metabolic Lab Routine NAFLD (nonalcohol ic Expected: 10/09/2021 panel (non-fasting) fatty liver disease) (Approximate), Expires: 2021 Lipid Panel (Reflex Direct Lab Routine NAFLD (nonalco holic Expected: 10/09/2021 LDL) fatty liver disease) (Approx imate), Expires: 2021 documented as of this encounter Visit Diagnoses Diagnosis NAFLD (nonalcoholic fatty liver disease) Other chronic nonalcoholic liver disease documented in this encounter Care Teams Edge Glue Machine Tender Relationship Specialty Start Date End Date David Elizabeth MD PCP - General General Internal Medicine 09/27/20 [address] [place] [address] documented as of this encounter
--- OUTSIDE RECORDS SUMMARY | 2022-05-24 00:25 | XMS_ITS | Clinical Summary ---
:1965 Author Organization [facility] [place] [address] Care Team Providers Name Role Phone Unknown Primary Care Provider Unavailable Allergies No known active allergies Medications No known medications Active Problems Problem Noted Date Fatty liver 09/28/2020 Hyperlipidemia 09/28/2020 Class 1 obesity in adult 09/28/2020 Immunizations Name Administration Dates Next Due Tdap Vaccine 02/26/2006 Social History Tobacco Use Types Packs/Day Years Used Date Never Smoker Smokeless Tobacco: Never Used Sex Assigned at Date Recorded Not on file Last Filed Vital Signs Vital Sign Reading [...] Mass Index 30.08 09/28/2020 1:52 PM EST Plan of Treatment Health Maintenance Due Date Last Done Comments Covid-19 Vaccine (#1) 1970 HIV screen 1983 Lipid Screening 1983 Colonoscopy 2010 Zoster vaccine (1 of 2) 2015 Tetanus vaccine 02/27/2016 02/26/2006 Advance Directive 2020 Influenza (Flu) vaccine (1 of 1 - Influenza standard 05/16/2022 series) Diabetes Screening (HgbA1C or Glucose) 09/28/2023 Tdap adult Completed 02/26/2006 Hepatitis C Screening Completed 09/28/2020 Insurance Payer Benefit Plan / Subscriber ID Effective Dates Phone Addre ss Type Group HEALTH PLANS HEALTH PLANS [id number] 2016-[place]ai [phone] [address] [place] [address] Care Teams Technology Trainer Relationship Specialty Start Date End Date Unknown PCP - General 06/15/21 None
--- NOTE | 2022-05-24 06:30 | DI.CT_ITS ---
Exam(s) CT CHEST W EXAM: CT CHEST W CLINICAL HISTORY: f/u infiltrate vs mass, abnl xr,r22.2 TECHNIQUE: Imaging Protocol: Axial computed tomography images with coronal and sagittal reformatted images were created and reviewed CONTRAST MATERIAL: Intravenous: Omnipaque 350Contrast volume:70 mL. COMPARISON: CR XR CHEST 2V PA LATERAL from 05/16/2022 FINDINGS: Tracheobronchial tree: Patent where visualized. Pulmonary parenchyma: There are few small noncalcified pulmonary nodules in the lungs. The largest i s in the left lower lobe measures 4 mm. There is a linear infiltrate in the left lower lobe. This m ay represent atelectasis, pneumonia or scarring. Mediastinum and Sarah: There is mediastinal and bilateral hilar adenopathy present. The largest lymph node is in the right hilum and measures 1.8 x 2.7 cm. The esophagus is unremarkable. Thyroid gland: Unremarkable. Pleura: No effusion or pneumothorax. Heart: The heart is not dilated. No coronary artery calcifications are seen. No pericardial effusion. Aorta: Thoracic aorta non-dilated. Pulmonary arteries: The pulmonary arteries are inadequately opacified for evaluation of pulmonary emb jerod. Upper abdomen: There is diffuse fatty infiltration of the liver. Lymph nodes: No axillary adenopathy. There is a 1.2 x 1.0 cm right supraclavicular lymph node. Bones: Within normal limits for the patient's age. Soft tissues: Unremarkable. IMPRESSION: 1. Several small noncalcified pulmonary nodules. The largest measures 4 mm. 2. Mediastinal and hilar adenopathy. The largest lymph node is in the right hilum and measures 1.8 x 2.7 cm. 3. Findings may represent an inflammatory/infectious process. Metastatic disease should also be cons idered. Please correlate clinically. 4. Fatty infiltration of the liver. RADIATION DOSE DELIVERED: 585.41mGy.cm Total DLP DATA REPOSITORY: All CT scans at this facility are submitted to the National Radiology Data Registry (NRDR) Dose Index Registry (DIR) with the [employer] (ACR). RADIATION OPTIMIZATION: All CT scans at this facility use at least one of these dose optimization te chniques: automated exposure control; mA and/or kV adjustment per patient size (includes targeted exa ms where dose is matched to clinical indication); or iterative reconstruction.
[2022-05-24] MEDS: Omnipaque 350 MG/ML 100 ML BTL 70 ML IJ (08:14)
== END ==
PROVIDERS: PCP Nurse Practitioner Family; Visit Provider Nurse Practitioner Family
DX: R22.2 Localized swelling, mass and lump, trunk (principal); R91.1 Solitary pulmonary nodule; K76.0 Fatty (change of) liver, not elsewhere classified; R59.0 Localized enlarged lymph nodes
CPT/HCPCS: 71260; J3490

== ENCOUNTER 2022-06-03 18:22 | Outpatient (REF) | payer BC, SELFPAY ==
[2022-06-03 20:12] LABS: Abs Immature Grans 0.02 10^3/uL (0.0-0.06); Absolute Basophil Count 0.04 10^3/uL (0.0-0.2); Absolute Eosinophil Count 0.35 10^3/uL (0.0-0.7); Absolute Monocyte Count 0.54 10^3/uL (0.1-0.8); Absolute Neutrophil Count 4.34 10^3/uL (1.2-6.7); Basophils % 0.6; Eosinophils % 5.5; HCT 44.6 % (40.0-50.0); HGB 14.8 g/dL (13.5-17.5); Immature Grans % 0.3; Lymphocytes % 17.2; MCH 29.5 pg (27.0-33.0); MCHC 33.2 % (32.0-36.0); MCV 89 fL (80-95); MPV 10.6 fL (8.0-11.0); Monocytes % 8.5; Neutrophils % 67.9; Platelet Count 258 10^3/uL (130-400); RBC 5.01 10^6/uL (4.36-5.78); RDW 13.2 % (11.8-14.1); RDW-SD 42.9 fL; WBC 6.39 10^3/uL (4.4-10.8)
[2022-06-03 20:46] LABS: ALT 83 U/L (16-63); AST 37 U/L (15-37); Albumin 3.9 g/dL (3.4-5.0); Alkaline Phosphatase 95 U/L (46-116); Anion Gap 12.9 mmol/L (3-11); BUN 18 mg/dL (7-18); Bilirubin, Total 0.6 mg/dL (0.2-1.0); CO2 24.1 mmol/L (21.0-32.0); CREATININE 1.5 mg/dL (0.70-1.30); Calcium 9.4 mg/dL (8.5-10.1); Chloride 105 mmol/L (98-107); Glucose 114 mg/dL (74-106); Potassium 3.8 mmol/L (3.5-5.1); Sodium 142 mmol/L (136-145); Total Protein 7.4 g/dL (6.4-8.2)
[2022-06-05 15:03] LABS: Leukemia/Lymphoma by FC (Blood (See below)
== END 2022-06-03 18:23 | disposition home or self-care (01) ==
LOC: LBN 18:22
PROVIDERS: PCP Nurse Practitioner Family; Visit Provider Student in an Organized Health Care Education/Training Program
DX: R59.0 Localized enlarged lymph nodes (principal)
CPT/HCPCS: 80053; 88185; 85025; 88184; 88189

== ENCOUNTER 2023-10-10 02:02 | Outpatient (CLI) | payer BC, SELFPAY ==
[2023-10-10 10:01] LABS: HCT 46.7 % (40.0-50.0); HGB 16.2 g/dL (13.5-17.5); MCH 30.9 pg (27.0-33.0); MCHC 34.7 % (32.0-36.0); MCV 89 fL (80-95); MPV 10.2 fL (8.0-11.0); Platelet Count 247 10^3/uL (130-400); RBC 5.25 10^6/uL (4.36-5.78); RDW-SD 42.5 fL; WBC 5.58 10^3/uL (4.4-10.8)
[2023-10-10 10:26] LABS: Hemoglobin A1C 5.4 % (<5.7)
[2023-10-10 10:47] LABS: ALT 57 U/L (16-63); AST 28 U/L (15-37); Alkaline Phosphatase 67 U/L (46-116); Anion Gap 8.2 mmol/L (3-11); BUN 21 mg/dL (7-18); Bilirubin, Total 0.8 mg/dL (0.2-1.0); CO2 26.8 mmol/L (21.0-32.0); CREATININE 1.3 mg/dL (0.70-1.30); Calculated LDL 132 mg/dL (<100); Chloride 104 mmol/L (98-107); Cholesterol 204 mg/dL (<200); Estimated GFR 63.68 (mL/min/1.73m2); Glucose 97 mg/dL (74-106); HDL Cholesterol 48 mg/dL (40-60); Sodium 139 mmol/L (136-145); TSH (W/Ref FT4) 3.04 uIU/mL (0.36-3.74); Total Protein 7.7 g/dL (6.4-8.2); Triglyceride 123 mg/dL (<150)
[2023-10-10 18:21] LABS: PSA, Screening 3.3 ng/mL (<=3.5)
== END 2023-10-10 02:03 | disposition home or self-care (01) ==
PROVIDERS: PCP Nurse Practitioner Family; Visit Provider Nurse Practitioner Family
DX: E78.5 Hyperlipidemia, unspecified (principal); R79.89 Other specified abnormal findings of blood chemistry; R91.8 Other nonspecific abnormal finding of lung field; Z00.00 Encounter for general adult medical examination without abnormal findings; Z82.49 Family history of ischemic heart disease and other diseases of the circulatory system
CPT/HCPCS: 36415; 80053; 80061; 84153; 85027; 83036; 84443

== ENCOUNTER 2024-04-09 06:14 | Day surgery (SDC) | payer BC, SELFPAY ==
--- OUTSIDE RECORDS SUMMARY | 2024-04-09 06:15 | XMS_ITS | Encounter Summary ---
Author Organization [facility] Address [address] [place] [address] Care Team Providers Care Manufacturing Production Technician Name Role Phone Unknown, Provider Primary Care Provider Encounter Details Date Type Department Care Team (Late st Contact Info) Description 07/17/2021 Lab Requisition [facility] Pathology & Laboratory Medicine - [facility] [place] [facility] [address] [place] [address] Outr Resulting Lab, Provider Social History Tobacco Use Types Packs/Day Years Used Date Smoking Tobacco: Never Assessed Sex and Gender Information Value Date Recorded Sex Assigned at Not on file Gender Identity Not on file Sexual Orientation Not on file documented as of this encounter Plan of Treatment Not on file documented as of this encounter Procedures Procedure Name Priority Date/Time Associated Diagnosis Comments ZZCOVID-19 TEST [facility] PCR Today 07/17/2021 9:15 EDT COVID-19 TESTING Routine 07/17/2021 9:15 EDT documented in this encounter Results * COVID-19 TEST [facility] LAB PCR (07/17/2021 9:15 EDT) Swab ENTIRE NASOPHARYNX / Unknown 07/17/2021 9:15 EDT 07/17/2021 21:29 EDT Provider Outr Resulting Lab MICROBIOLOGY - GENERAL ORDERABLES [facility] [address] [place] [address] * COVID-19 TESTING (07/17/2021 9:15 EDT) COVID-19 rt-PCR Result Negative Negative 07/18/2021 19:08 EDT [facility] Comment: This test has not been FDA cleared or approved. This test has been authorized by FDA under an EUA for use by authorized laboratories. This test has been authorized only for detection of nucleic acid from 2019-nCoV, not for any other viruses or pathogens. This test is only authorized for the duration of the declaration that circumstances exist justifying the authorization of emergency use of in vitro diagnostic tests for detection and/or diagnosis of 2019-nCoV under section 564(b)(1) of Act, 21 U.S.C ?? 360bbb-3(b) (1), unless the authorization is terminated or revoked sooner. Negative results do not preclude 2019-nCoV infection and should not be used as the sole basis for treatment or other patient management decisions. Negative results must be combined with clinical observations, patient history, and epidemiological information. Performed on the [employer] Fusion instrument This is an appended report. ??These results have been appended to a previously preliminary verified report. Performing Lab Craig [facility] Lab 07/18/2021 19:08 EDT [facility] Swab 07/17/2021 9:15 EDT 07/17/2021 21:29 EDT Provider Outr Resulting Lab MICROBIOLOGY - GENERAL ORDERABLES [facility] [address] [place] [address] documented in this encounter Visit Diagnoses Not on filedocumented in this encounter Care Teams Manufacturing Production Technician Relationship Specialty Start Date End Date Unknown, Provider, PCP - General 07/20/15 documented as of this encounter
--- OUTSIDE RECORDS SUMMARY | 2024-04-09 06:15 | XMS_ITS | Encounter Summary ---
Author Organization [facility] [place] [address] [address] Care Team Providers Care Watchguard Name Role Phone Unknown Primary Care Provider Unavailabl e Encounter Details Date Type Department Care Team (Late st Contact Info) Description 06/18/2022 [place] [phone] Michelle Landeros RMA Social History Tobacco Use Types Packs/Day Years Used Date Smoking Tobacco: Never Smokeless Tobacco: Never Sex and Gender Information Value Date Recorded Sex Assigned at Not on file Gender Identity Not on file Sexual Orientation Not on file documented as of this encounter Miscellaneous Notes * Telephone Encounter - Michelle Landeros RMA - 06/18/2022 2:03 PM EDT Spoke with pt...allergies, meds, & tobacco reviewed. documented in this encounter Plan of Treatment Not on file documented as of this encounter Visit Diagnoses Not on filedocumented in this encounter Care Teams Watchguard Relationship Specialty Start Date End Date Unknown None PCP - General 06/15/21 06/18/22 documented as of this encounter
--- OUTSIDE RECORDS SUMMARY | 2024-04-09 06:15 | XMS_ITS | Encounter Summary ---
Author Organization [facility] [place] [address] Care Team Providers Care Manager Investigations Name Role Phone Unknown Primary Care Provider Unavailabl e Encounter Details Date Type Department Care Team (Late st Contact Info) Description 06/18/2022 Orders [place] [phone] Zuleika Browne Social History Tobacco Use Types Packs/Day Years [...] on filedocumented in this encounter Care Teams Manager Investigations Relationship Specialty Start Date End Date Unknown None PCP - General 06/15/21 06/18/22 documented as of this encounter
--- OUTSIDE RECORDS SUMMARY | 2024-04-09 06:15 | XMS_ITS | Encounter Summary ---
Author Organization [facility] Address [address] [place] [address] Care Team Providers Care Numberer And Wirer Name Role Phone Unknown, Provider Primary Care Provider Encounter Details Date Type Department Care Team (Late st Contact Info) Description 09/04/2020 Lab Requisition [facility] Pathology & Laboratory Medicine - [facility] [address] [place] [address] Outr Resulting Lab, Provider Social History Tobacco [...] Procedure Name Priority Date/Time Associated Diagnosis Comments CHRONIC HEPATITIS PROFILE, UNKNOWN TYPE Routine 09/04/2020 9:06 EST documented in this encounter Results * CHRONIC HEPATITIS PROFILE, UNKNOWN TYPE (09/04/2020 9:06 EST) Hep B Surface Ag Negative Negative 09/05/20 10:11 [facility] Hep B Surface Ab, Quantitative <3.1 See Note mIU/mL 09/05/2020 10:11 [facility] Comment: Reference Range for Hep B Surface Ab, Quant: Positive: >= 10.0 mIU/mL Negative: ??< 10.0 mIU/mL Patient is presumed to not be immune to infection with Hepatitis B Virus. Hep B Surface Ab, Qualitative Negative See Note 09/05/2020 10:11 [facility] Comment: Reference Range for Hep B Surface Ab, Qual: Unvaccinated: ??Negative Vaccinated: ??Positive Hepatitis B Core Ab, Total Negative Negative 09/05/2020 10:11 EST [facility] Hep C Antibody Negative Negative 09/05/2020 10:11 EST [facility] Blood VENOUS BLOOD / Unknown 09/04/2020 9:06 EST 09/04/2020 16:12 EST Provider Outr Resulting Lab CHEMISTRY & BLOOD GAS ORDERABLES Performing Organization Address City/State/[facility] Co de Phone Number [facility] [address] [place] [phone] documented in this encounter Visit Diagnoses Not on filedocumented in this encounter Care Teams Numberer And Wirer Relationship Specialty Start Date End Date Unknown, Provider, PCP - General 07/20/15 documented as of this encounter
--- OUTSIDE RECORDS SUMMARY | 2024-04-09 06:15 | XMS_ITS | Encounter Summary ---
Author Organization [facility] Address [facility] [place] [address] [address] Care Team Providers Care Psychologist Engineering Name Role Phone Unknown Primary Care Provider Unavailabl e Encounter Details Date Type Department Care Team (Late st Contact Info) Description 05/16/2022 Ancillary Procedure [place] [address] Juan Miguel Miller MD [facility] [place] [address] Social History Tobacco Use Types Packs/Day Years Used Date Smoking Tobacco: Never Smokeless Tobacco: Never Sex and Gender Information Value Date Recorded Sex Assigned at Not on file Gender Identity Not on file Sexual Orientation Not on file documented as of this encounter Plan of Treatment Not on file documented as of this encounter Procedures Procedure Name Priority Date/Time Associated Diagnosis Comments FILM LIBRARY STORAGE ONLY DX CHEST Routine 05/16/2022 12:00 AM EDT documented in this encounter Results * Film Library- Storage Only DX Chest (05/16/2022 12:00 AM EDT) Narrative RAD - 06/06/2022 1:38 PM EDT This exam is auto-finalizing. It's purpose is for storage only. Juan Miguel VAZ FILM LIBRARY ORD ERABLES [place], [place] documented in this encounter Visit Diagnoses Not on filedocumented in this encounter Care Teams Psychologist Engineering Relationship Specialty Start Date End Date Unknown None PCP - General 06/15/21 06/18/22 documented as of this encounter
--- OUTSIDE RECORDS SUMMARY | 2024-04-09 06:15 | XMS_ITS | Encounter Summary ---
Author Organization [facility] Address [address] [place] [address] Care Team Providers Care Sales Representative Leather Goods Name Role Phone Unknown, Provider Primary Care Provider Encounter Details Date Type Department Care Team (Late st Contact Info) Description 01/02/[address] [facility] Pathology & Laboratory Medicine - [facility] [address], [place] [id number] Outr Resulting Lab, Provider Social History Tobacco [...] Comments ZZCOVID-19 TEST [facility] PCR Today 01/02/2021 9:00 EDT COVID-19 TESTING Routine 01/02/2021 9:00 EDT documented in this encounter Results * COVID-19 TEST [facility] PCR (01/02/2021 9:00 EDT) Swab ENTIRE NASOPHARYNX / Unknown 01/02/2021 9:00 EDT 01/02/2021 15:37 EDT Provider Outr Resulting Lab MICROBIOLOGY - GENERAL ORDERABLES [facility] [address] [place] [address] * COVID-19 TESTING (01/02/2021 9:00 EDT) COVID-19 rt-PCR Result Negative Negative 01/03/2021 12:46 EDT [facility] Comment: This test has not [...] clinical observations, patient history, and epidemiological information. Testing was performed using the lucinda SARS-CoV-2 assay ([employer] on the Lucinda 6800 System Performing Lab Lucinda [address] [facility] Lab 01/03/2021 12:46 EDT [facility] Swab 01/02/2021 9:00 EDT 01/02/2021 15:37 EDT Provider Outr Resulting Lab MICROBIOLOGY - GENERAL ORDERABLES [facility] [address] [place] [address] documented in this encounter Visit Diagnoses Not on filedocumented in this encounter Care Teams Sales Representative Leather Goods Relationship Specialty Start Date End Date Unknown, Provider, PCP - General 07/20/15 documented as of this encounter
--- OUTSIDE RECORDS SUMMARY | 2024-04-09 06:15 | XMS_ITS | Encounter Summary ---
Author Organization [facility] Address [address] [place] [address] Care Team Providers Care Custom Van Converter Name Role Phone Unknown, Provider Primary Care Provider [phone] Encounter Details Date Type Department Care Team (Late st Contact Info) Description 10/10/2023 Lab Requisition [facility] Pathology & Laboratory Medicine - [facility] [address] [place] [address] Outr Resulting Lab, Provider Social History Tobacco [...] Procedure Name Priority Date/Time Associated Diagnosis Comments PSA TOTAL, DIAGNOSTIC Routine 10/10/2023 9:54 EST documented in this encounter Results * PSA TOTAL, DIAGNOSTIC (10/10/2023 9:54 EST) PSA 3.3 <=3.5 ng/mL 10/10/2023 18:16 EST [facility] Blood VENOUS BLOOD / Unknown 10/10/2023 9:54 EST 10/10/2023 16:48 EST Narrative [facility] - 10/10/2023 18:16 EST NOTE: Serum PSA concentration should not be interpreted as absolute evidence for the presence or absence of malignant disease. Assayed on Siemens ADVIA Centaur XPT using chemiluminescent technology.??Values obtained by using different assay methods cannot be used interchangeably. Provider Outr Resulting Lab CHEMISTRY & BLOOD GAS ORDERABLES [facility] [address] [place] [address] documented in this encounter Visit Diagnoses Not on filedocumented in this encounter Care Teams Custom Van Converter Relationship Specialty Start Date End Date Unknown, Provider, PCP - General 07/20/15 documented as of this encounter
--- OUTSIDE RECORDS SUMMARY | 2024-04-09 06:15 | XMS_ITS | Clinical Summary ---
Author Organization [facility] [place] [place] [address] Care Team Providers Care Panel Builder Name Role Phone None Primary Care Provider Unavailabl e Allergies No known active allergies Medications Medication Sig Dispensed Refills Start Date End Date Status simvastatin (Zocor) 20 mg Tablet 04/24/2022 Active Active Problems Problem Noted Date Diagnosed Date Lymphadenopathy 06/19/2022 Fatty liver 09/28/2020 Hyperlipidemia 09/28/2020 Class 1 obesity in adult 09/28/2020 Immunizations Name Administration Dates Next Due Tdap 02/26/2006 Social History Tobacco Use Types Packs/Day Years Used Date Smoking Tobacco: Never Smokeless Tobacco: Never Sex and Gender Information Value Date Recorded Sex Assigned at Not on file Gender Identity Not on file Sexual Orientation Not on file Last Filed Vital Signs Vital Sign Reading Time Taken Comments Blood Pressure 144/78 06/19/2022 8:51 AM EDT Pulse 63 06/19/2022 8:51 AM EDT Temperature 36.1 ??C (97 ??F) 06/19/2022 8:51 AM EDT Respiratory Rate 16 06/19/2022 8:51 AM EDT Oxygen Saturation 98% 06/19/2022 8:51 AM EDT Inhaled Oxygen Concentration - - Weight 106.8 kg (235 lb 6.4 oz) 06/19/2022 8:51 AM EDT Height 188 cm (6' 2) 06/19/2022 8:51 AM EDT Body Mass Index 30.22 06/19/2022 8:51 AM EDT Plan of Treatment Health Maintenance Due Date Last Done Comments CT Colonography 1965 Colonoscopy 1965 Colorectal Cancer Screening 1965 FIT DNA 1965 FIT 1965 Sigmoidoscopy (10 year) with FIT yearly 1965 Sigmoidoscopy 1965 HIV screen 1983 Hepatitis B vaccine (0-59 yrs) (1) 1984 Zoster vaccine (1 of 2) 2015 Tetanus vaccine 02/27/2016 02/26/2006 Advance Directive 2020 Covid-19 Vaccine (1 - 2022-24 season) 2023 Diabetes Screening (HgbA1C or Glucose) 09/28/2023 Influenza (Flu) vaccine (1 o f 1 - Influenza standard series) 05/16/2024 Tdap adult Completed 02/26/2006 Hepatitis C Screening Completed 09/28/2020 Procedures Procedure Name Priority Date/Time Associated Diagnosis Comments HC HEPATITIS C ANTIBODY Routine 09/28/2020 3:35 PM EST Abnormal liver function tests HC HEMOGLOBIN A1C Routine 09/28/2020 3:3 5 PM EST Fatty liver from Last 3 Months or Most Recently Relevant to Health Maintenance Results * Hepatitis C Antibody (09/28/2020 3:35 PM EST) Hepatitis C Ab Negative Negative [facility] Blood specimen (specimen) 09/28/2020 3:35 PM EST 09/28/2020 4:03 PM EST Narrative Resulting Agency Comment Spec In Lab Bibi Eugene MD IMMUNOLOGY ORDERABLE S [facility] [place] [address] * Hemoglobin A1c (09/28/2020 3:35 PM EST) Hemoglobin A1C 5.2 4.3 - 5.6 % [facility] Comment: Reference Range: 4.3 - 5.6% 5.7 - 6.4% - Increased Risk of Developing Diabetes Mellitus >= 6.5% - Consistent with diagnosis of Diabetes Mellitus In the absence of hyperglycemia (i.e. plasma glucose > 200 mg/dL) or classic symptoms of hyperglycemia a repeat measurement of HbA1c should be performed on a separate sample to confirm the diagnosis. Diagnosis and Classification of Diabetes Mellitus, Diabetes Care 2013; 36: Suppl. 1, S67-08 Est Avg Gluc 102 mg/dL [facility] Comment: eAG equivalents for HbA1c percentages: HbA1c(%) ?eAG(mg/dL) 6.0 ?126 6.5 ?140 7.0 ?154 7.5 ?169 8.0 ?183 8.5 ?197 9.0 ?212 9.5 ?226 10.0 ? 240 Limitations: The eAG calculation has not been validated on women, individuals below 18 years old and above 70 years old, and individuals with hemoglobinopathies. Additional resources are available on the ADA website. Scott CANALES, Linda J, Vivek R, et al. ??Translating the A1C assay into estimated average glucose values. ??Diabetes Care 2008:31(8):9982-4182. Blood specimen (specimen) 09/28/2020 3:35 PM EST 09/28/2020 4:13 PM EST Narrative Resulting Agency Comment Spec In Lab Bibi Eugene MD CHEMISTRY ORDERABLES [facility] [place] [address] from Last 3 Months or Most Recently Relevant to Health Maintenance Care Teams Panel Builder Relationship Specialty Start Date End Date None None PCP - General 06/19/22
--- OUTSIDE RECORDS SUMMARY | 2024-04-09 06:15 | XMS_ITS | Encounter Summary ---
Author Organization [facility] Address [address] [place] [address] Care Team Providers Care Machine Operator Helper Name Role Phone Unknown, Provider Primary Care Provider Encounter Details Date Type Department Care Team (Late st Contact Info) Description 01/05/2021 Lab Requisition [facility] Pathology & Laboratory Medicine - [facility] [address] [place] [address] Outr Resulting Lab, Provider Social History Tobacco [...] Comments ZZCOVID-19 TEST [facility] PCR Today 01/05/2021 9:40 EDT COVID-19 TESTING Routine 01/05/2021 9:40 EDT documented in this encounter Results * COVID-19 TEST [facility] PCR (01/05/2021 9:40 EDT) Swab ENTIRE NASOPHARYNX / Unknown 01/05/2021 9:40 EDT 01/05/2021 15:53 EDT Provider Outr Resulting Lab MICROBIOLOGY - GENERAL ORDERABLES [facility] [address] [place] [address] * COVID-19 TESTING (01/05/2021 9:40 EDT) COVID-19 rt-PCR Result Negative Negative 01/06/2021 12:16 EDT [facility] Comment: This test has [...] was performed using the lucinda SARS-CoV-2 assay ([employer] on the Lucinda 6800 System Performing Lab Lucinda [address] [facility] 01/06/2021 12:16 EDT [facility] Swab 01/05/2021 9:40 EDT 01/05/2021 15:53 EDT Provider Outr Resulting Lab MICROBIOLOGY - GENERAL ORDERABLES [facility] [address] [place] [address] documented in this encounter Visit Diagnoses Not on filedocumented in this encounter Care Teams Machine Operator Helper Relationship Specialty Start Date End Date Unknown, Provider, PCP - General 07/20/15 documented as of this encounter
--- OUTSIDE RECORDS SUMMARY | 2024-04-09 06:15 | XMS_ITS | Encounter Summary ---
Author Organization [facility] [place] [address] Care Team Providers Care Parking Attendant Name Role Phone Unknown Primary Care Provider Unavailabl e Encounter Details Date Type Department Care Team (Late st Contact Info) Description 06/11/2022 [place] [id number] Zuleika Browne Social History Tobacco Use Types [...] on filedocumented in this encounter Care Teams Parking Attendant Relationship Specialty Start Date End Date Unknown None PCP - General 06/15/21 06/18/22 documented as of this encounter
--- OUTSIDE RECORDS SUMMARY | 2024-04-09 06:15 | XMS_ITS | Referral Summary ---
Author Organization [facility] Address [address] [place] [address] Care Team Providers Care Inspector Dials Name Role Phone Unknown, Provider Primary Care Provider [phone] Social History Tobacco Use Types Packs/Day Years Used Date Smoking Tobacco: Never Assessed Sex and Gender Information Value Date Recorded Sex Assigned at Not on file Gender Identity Not on file Sexual Orientation Not on file Plan of Treatment Not on file Care Teams Inspector Dials Relationship Specialty Start Date End Date Unknown, Provider, PCP - General 07/20/15
--- OUTSIDE RECORDS SUMMARY | 2024-04-09 06:15 | XMS_ITS | Clinical Summary ---
Author Organization [facility] Address [address] [place] [address] Care Team Providers Care Print Production Associate Name Role Phone Unknown, Provider Primary Care Provider Social History Tobacco Use Types Packs/Day Years Used Date Smoking Tobacco: Never Assessed Sex and Gender Information Value Date Recorded Sex Assigned at Not on file Gender Identity Not on file Sexual Orientation Not on file Plan of Treatment Health Maintenance Due Date Last Done Comments Hepatitis C Screen 1965 Hepatitis B Vaccine (1 of 3 - 19+ 3-dose series) 07/23 COVID-19 Vaccine (2022- season) 2023 Care Teams Print Production Associate Relationship Specialty Start Date End Date Unknown, Provider, PCP - General 07/20/15
--- OUTSIDE RECORDS SUMMARY | 2024-04-09 06:15 | XMS_ITS | Encounter Summary ---
Author Organization [facility] Address [facility] [address] [address] [place] [address] Care Team Providers Care Search Engine Marketing Strategist Name Role Phone Unknown Primary Care Provider Unavailabl e Encounter Details Date Type Department Care Team (Late st Contact Info) Description 05/24/2022 Ancillary Procedure [place] [address] Juan Miguel Miller MD [facility] [place] [address] Social History Tobacco Use Types Packs/Day Years [...] Associated Diagnosis Comments FILM LIBRARY STORAGE ONLY CT CHEST Routine 05/24/2022 12:00 AM EDT documented in this encounter Results * Film Library- Storage Only CT Chest (05/24/2022 12:00 AM EDT) Narrative [facility] - 06/06/2022 1:37 PM EDT This exam is auto-finalizing. It's purpose is for storage only. Juan Miguel VAZ FILM LIBRARY ORD ERABLES [place], [place] documented in this encounter Visit Diagnoses Not on filedocumented in this encounter Care Teams Search Engine Marketing Strategist Relationship Specialty Start Date End Date Unknown None PCP - General 06/15/21 06/18/22 documented as of this encounter
--- OUTSIDE RECORDS SUMMARY | 2024-04-09 06:15 | XMS_ITS | Encounter Summary ---
Author Organization [facility] Address [address] [place] [address] Care Team Providers Care College Sports Coach Name Role Phone Unknown, Provider Primary Care Provider Encounter Details Date Type Department Care Team (Late st Contact Info) Description 06/04/2022 Lab Requisition [facility] Pathology & Laboratory Medicine - [facility] [address] [place] [address] Claribel Guerrero MD [address] [place] [address] Localized enlarged lymph nodes; Other nonspecific abnormal finding of lung field Social History Tobacco Use Types Packs/Day Years Used Date Smoking Tobacco: Never Assessed Sex and Gender Information Value Date Recorded Sex Assigned at Not on file Gender Identity Not on file Sexual Orientation Not on file documented as of this encounter Plan of Treatment Not on file documented as of this encounter Procedures Procedure Name Priority Date/Time Associated Diagnosis Comments LEUKEMIA/LYMPHOMA PANEL BY FLOW CYTOMETRY Today 06/03/2022 15:53 EDT documented in this encounter Results * LEUKEMIA/LYMPHOMA PANEL BY FLOW CYTOMETRY (06/03/2022 15:53 EDT) Final Immunophenotypic Interpretation Peripheral blood, flow cytometric analysis: - No immunophenotypic evidence of a clonal cell population. See comment. 2 15:00 EDT [facility] Comment The cytospin reveals normal leukocyte morphology. The results of flow cytometry show no immunophenotypic evidence of involvement by a clonal lymphoproliferative or myeloproliferative disorder. 2 15:00 EDT [facility] Attestation By the signature below, the attending physician certifies that they have 1) personally conducted a gross and/or microscopic examination of the described specimen(s), and/or personally interpreted the results of laboratory testing of the described specimen(s), and 2) personally rendered or confirmed the above diagnosis. 2 15:00 [facility] at 1500 Clinical History 56 yo male with lymphadenopathy an abnormal nonspecific findings in lung field. 15:00 [facility] Description Morphology of a cytospin slide prepared from the sample has been reviewed. The specimen consists of peripheral blood that has been prepared using ammonium chloride lysing agent. Gating is performed using CD45 fluorescence and side scatter. Cellular viability (assessed by 7-AAD exclusion) is excellent (99%) among cells with CD45 and side scatter properties typical of lymphocytes and adequate (90%) among CD45+ events overall. Scatter plots incorporating all of the markers have been interpreted and evaluated for the presence or absence of abnormal cell populations. Only pertinent abnormal findings are included. If not otherwise addressed all other markers were normal/negative. A majority of the lymphoid cells are T-lymphocytes (CD3+CD5+) with CD4+ and CD8+ subsets represented in normal ratio. The remaining lymphocytes are B-lymphocytes (CD19+CD20+) and NK-cells (CD3-CD16+CD56+). Among the B-cells, both kappa+ and lambda+ subsets are represented in normal ratio. The remainder of the CD45+ events is predominantly of myeloid lineage. There are no circulating blasts or plasma cells. 15:00 [facility] Flow Markers CD10, CD117, CD11c, CD16, CD19, CD20, CD3, CD33, CD34, CD38, CD4, CD45, CD5, CD56, CD8, HLA-DR, [place], and Lambda 15:00 [facility] FDA Disclaimer This test was developed and its performance characteristics determined by the Department of Pathology and Laboratory Medicine, [facility], [place], [place]. It has not been cleared or approved by the U.S. Food and Drug Administration. FDA does not require this test to go through premarket FDA review. This test is used for clinical purposes. It should not be regarded as investigational or for research. This laboratory is certified under the Clinical Laboratory Improvement Amendments (CLIA) as qualified to perform high complexity clinical laboratory testing. 2 15:00 EDT [facility] Sample Analyzed Date and Time 06/05/22 12:19 2 15:00 EDT [facility] Scanned Images 2 15:00 EDT [facility] ZZUNK VENOUS BLOOD / Unknown 06/03/2022 15:53 EDT 06/05/2022 7:24 EDT Claribel Guerrero MD PATHOLOGY ORDERABLES [facility] [address] [place] [address] documented in this encounter Visit Diagnoses Diagnosis Localized enlarged lymph nodes Enlargement of lymph nodes Other nonspecific abnormal finding of lung field documented in this encounter Care Teams College Sports Coach Relationship Specialty Start Date End Date Unknown, Provider, PCP - General 07/20/15 documented as of this encounter
--- OUTSIDE RECORDS SUMMARY | 2024-04-09 06:15 | XMS_ITS | Encounter Summary ---
Author Organization Formerly [facility], 1928–1983 Address [facility] [place] [place] [address] Care Team Providers Care Nursing Tech Name Role Phone None Primary Care Provider Unavailabl e Reason for Visit * Consultation (Routine) - Closed Specialty Diagnoses / Procedures Referred By Lacie kulkarni Referred To Contact Pulmonology Diagnoses Mediastinal lymphadenopathy Localized enlarged lymph nodes Claribel Guerrero MD [address] [place] [address] [facility] [address] [place] [address] Referral ID Status Reason Start Date Expiration Date Visits Re quested Visits Authorized [id number] Closed 06/06/2022 06/06/2023 1 1 Encounter Details Date Type Department Care Team (Late st Contact Info) Description 06/19/2022 9:00 AM EDT Office [place] [address] Juan Miguel Miller MD [facility] [place] [address] Lymphadenopathy Social History Tobacco Use Types Packs/Day Years [...] Mass Index 30.22 06/19/2022 8:51 AM EDT documented in this encounter Progress Notes * Juan Miguel Miller MD - 06/19/2022 9:00 AM EDT Images from the original note were not included. INTERVENTIONAL PULMONOLOGY OUTPATIENT CONSULT NOTE SECTION OF PULMONARY & CRITICAL CARE MEDICINE PATIENT NAME: Scout Dodson : 1965 MEDICAL RECORD: [id number] DATE OF SERVICE: 06/19/2022 REFERRING PHYSICIAN: Claribel Guerrero MD Chief Complaint: I'm here to consult about the lymph nodes. History of Present Illness: Mr. Scout Dodson is a 56 y.o. gentleman who has been sent to Interventional Pulmonology for consultation regarding lymphadenopathy. He developed COVID-19 infection in 03/2022 with mild exertional dyspnea and dry cough persisting since then which prompted additional radiographic work-up through his PCP's office. This led to a CT chest on 05/24/2022 which demonstrated prominent but not pathologically enlarged lymph nodes at station 4R (9 mm short- axis), prominent but non-enlarged station 7, an enlarged station 11Rs lymph node measuring 31x22 mm, prominent/mildly enlarged station 11Ri and no appreciable lymphadenopathy at the left hilum. There is a 12x10 mm R supraclavicular lymph node and background of sub-5 mm pulmonary nodules. No comparison imaging is available. He was subsequently referred to [facility] Pulmonology and met with Dr. Guerrero on 06/03/22 who referred him to our program for consideration of EBUS- TBNA. No reports of night sweats, weight loss, anorexia, neurologic changes, chest pain, joint pain or rash. It does not sound as if he's having actually dyspnea but sometimes has the sensation of shortness of breathing when coughing while trying to talk to someone. Sarcoidosis was the leading differential. Blood work was obtained at the time of that appointment. In terms of his cough, he was started on Advair by Dr. Guerrero without noticeable difference thus far. He has been on a few rounds of various antibiotics without improvement. No runny nose or itchy eyes. No reports of seasonal allergies. He has a history of GERD which he uses PRN Tums infrequently. In speaking with . Scout Dodson, he tells me the blood work done at [facility] was fine as far asI know.... Review of Systems: A 12 point ROS was negative aside from as listed in the HPI. Past Medical History: Patient Active Problem List Diagnosis Code ??? Fatty liver K76.0 ??? Hyperlipidemia E78.5 ??? Class 1 obesity in adult E66.9 Medications: Current Outpatient Medications on File Prior to Visit Medication Sig Dispense Refill ??? simvastatin (Zocor) 20 mg Tablet No current facility-administered medications on file prior to visit. Allergies: No Known Allergies Objective: Patient Vitals for the past 24 hrs: Temp Pulse Resp BP SpO2 06/19/22 0851 36.1 ??C (97 ??F) 63 16 144/78 98 % General: This is a 56 y.o. male HEENT: Moist mucous membranes, sclera are white Neck: Supple, trachea is midline, no gross deformity Lymphatics: No obvious lymphadenopathy Cardiovascular: Nl s1/s2, rrr Respiratory: Clear to auscultation bilaterally GI: soft, nt, nd Extremities: no LE edema noted, no clubbing Family History: Father had pancreatic cancer Sister had breast cancer No known FH of sarcoid, lung cancer, or lymphoma Social History: Smoking status: Smoked for a year in college Smoking history: </ 1 PY EtOH: Few drinks per week Other drugs: Occasional PO THC The patient lives in: [place], [place] Employment: Retired, worked for [employer] Occupational exposures: Paints Pertinent Imaging: (Images personally reviewed) 05/24/22 CT Chest: Prominent/non-enlarged station 4R, 7, +/- 11L; enlarged station 11L Assessment: Mr. Scout Dodson is a pleasant 56 y.o. gentleman who has been sent to me for consultation in regards to incidentally identified lymphadenopathy and sub-5 mm pulmonary nodules found during work-up of chronic, post-viral cough. These include prominent clustering of station 4R lymph nodes, a prominent station 7 and 11Ri, and enlarged station 11Rs (32 mm on my measurements). No comparison imaging and Mr. Dodson is mildly symptomatic with chronic cough. No infectious or constitutional symptomatology. He is essentially a never-smoker. We reviewed his imaging together and discussed the differential which includes granulomatous disease/sarcoid, reactive lymphadenopathy, and inability to exclude a more indolent lymphoproliferative process. The asymmetric nature of his hilar involvement on CTis noted/more atypical of sarcoidosis. I offered him one of two approaches: 1) bronchoscopy with EBUS now versus 2) [address] chest imaging (early 11/2021). He and his requested the latter approach with follow-up to occur with Dr. Guerrero. If ashley enlargement occurs or new symptomatology arises, we will make plans for tissue sampling at that time. The patient's performance status using the ECOG assessment tool is 0 (fully active, no restrictions). Mr. Scout Dodson was providedample time to ask questions which were answered to his liking. Recommendations: ?? Recommend [address] chest (5 months from now) with Dr. Guerrero ?? If ashley enlargement - we will plan for bronchoscopy with EBUS-TBNA ?? 7 days of Prednisone prescribed ?? Follow-up with me on an as needed basis I personally performed a total of 60 minutes or greater of aggregate time involved in patient evaluation, reviewing medical records, interpreting diagnostic studies (imaging and/or labs), formulatingmy plan, and documentation of this consultation note. Juan Miguel Miller MD Interventional Pulmonology Section of Pulmonary & Critical Care Pager: [phone] documented in this encounter Plan of Treatment Not on file documented as of this encounter Visit Diagnoses Diagnosis Lymphadenopathy Enlargement of lymph nodes documented in this encounter Care Teams Nursing Tech Relationship Specialty Start Date End Date None None PCP - General 06/19/22 documented as of this encounter
--- OUTSIDE RECORDS SUMMARY | 2024-04-09 06:16 | XMS_ITS | Encounter Summary ---
Author Organization [facility] [place] [address] Care Team Providers Care Work Distributor Name Role Phone David Elizabeth MD Primary Care Provider [phone] Encounter Details Date Type Department Care Team (Late st Contact Info) Description 10/09/2020 Orders Only Gastroenterology at [facility] [place] [place] [address] Kevin Lynn PA [facility] [place] [address] NAFLD (nonalcoholic fatty liver disease) Social History Tobacco Use Types Packs/Day Years [...] disease documented in this encounter Care Teams Work Distributor Relationship Specialty Start Date End Date David Elizabeth MD PCP - General General Internal Medicine 09/27/20/ documented as of this encounter
--- OUTSIDE RECORDS SUMMARY | 2024-04-09 06:16 | XMS_ITS | Encounter Summary ---
Author Organization [facility] Address [facility] [place] [address] Care Team Providers Care Dyeing Machine Feeder Name Role Phone David Elizabeth MD Primary Care Provider [phone] Reason for Visit * Consultation (Routine) - Specialty Diagnoses / Procedures Referred By Contac t Referred To Contact Gastroenterology Diagnoses Other specified abnormal findings of blood chemistry Hyperlipidemia, unspecified Family history of ischemic heart disease and other diseases of the circulatory system Liver- elevated LFTs, hyperlipidemia Procedures consult David Elizabeth MD [address] [place] [id number] [facility] [address] [address] Referral ID Status Reason Start Date Expiration Date V isits Requested Visits Authorized [id number] Consult, Test & Treat PCP Updated and/or Approved 09/23/2020 03/23/2021 6 6 Encounter Details Date Type Department Care Team (Latest Contact Info) Description 09/28/2020 2:00 PM EST [place] [address] Kevin Lynn PA [facility] [place] [address] Abnormal liver function tests (Primary Dx); Fatty liver; Hyperlipidemia, unspecified hyperlipidemia type; Class 1 obesity with body mass index (BMI) of 30.0 to 30.9 in adult, unspecified obesity type, unspecified whether serious comorbidity present Social History Tobacco Use Types Packs/Day Years [...] EST documented in this encounter Progress Notes * Kevin Lynn PA - 09/28/2020 2:00 PM EST Images from the original note were not included. HEPATOLOGY NEW PATIENT CONSULTATION Patient: Scout Dodson Sex: male Date of : 1965 GETTER WELDER: Kevin Lynn PA-C PCP: David Elizabeth MD [...] on routine blood work, which was again checked a month later and continued to be abnormal. He has been in talks with his primary care doctor about treating high cholesterol with medication, but there has been some hesitancy because of his liver tests. His father had coronary artery disease. He does not take any medications currently and deniesany herbal or dietary supplements. He states that he has never been told about any previous problems with his liver that he is aware of. In regard to alcohol use, he states he drinks 2-3 beers on Fridays and Saturdays, but otherwise none during the week. He may have drank a little heavier in college, but has not been a heavy drinkerthrough most of his adult life. He otherwise [...] irregular heart beat, pain in legs with walking,swelling in feet Pulmonary: Denies SOB, persistent cough, coughing up blood, asthma or wheezing Gastrointestinal: Denies poor appetite, abdominal pain, indigestion, trouble swallowing, diarrhea, constipation, nausea/vomitting, rectal bleeding or blood in stools Musculoskeletal: Denies pain in joints, back pain, neck or shoulder pain, muscle cramping, movementof legs at night Neurologic: Denies blackouts or loss of consciousness, headache, weakness or numbness in legs or arms, tremor, worsening memory and concentration Genitourinary: Denies frequent urination, blood in urine Psychiatric: Denies changes in mood or behavior, anxiety MEDICATIONS No current outpatient medications on file. No current facility-administered medications for this visit. ALLERGIES No Known Allergies SOCIAL HISTORY Occupation: [employer] Marital status: , 2 children Smoking: None [...] Vitals: 09/28/20 1352 BP: 139/77 BP Location (NBP): Left arm Patient Position: Sitting BP Cuff [...] past 24 hour(s)). Non-DH Laboratory: 08/01/20 @ [facility]: 07/10/20: 05/31/19: Imaging: Ultrasound 08/25/20 @ [facility]: Fibroscan Results Today: Median kPa: 6.3 Mean IQR: 14% (goal is <30 %) Number of valid measurements: 10 (10 required) Number of invalid measurements: 0 Predicted fibrosis stage: F0-F1 CAP (dB/m): 348 ASSESSMENT/PLAN Scout Dodson is a 55 y.o. male with hyperlipidemia who was found to have significantly elevated transaminases on routine lab work in June 2020, more so than the previous year in May 2019. He had an abdominal ultrasound last month suggesting moderate hepatic steatosis but otherwise unremarkable. He has been completely asymptomatic from a liver/GI standpoint. He drinks regular alcoholbut only on weekends, 2-3 drinks daily. I believe that given his hyperlipidemia and modest overweight/obesity status, this is more likely a case of nonalcoholic fatty liver disease (NAFLD), or perhaps nonalcoholic steatohepatitis (DOAN). A FibroScan today was very reassuring suggesting no significant fibrosis. He does however have high-grade steatosis consistent with ultrasound findings. Remainder of today's history and physical examwere entirely benign. Fatty liver disease is one of the most common causes of liver disease in the [place]. It is regarded as the liver manifestation of metabolic syndrome, associated with cardiovascular disease andpredisposition to developing diabetes. The goals of treatment are treating or managing risk factors. We discussed the importance of lifestyle interventions and making healthy food choices as the backbone of treatment for this condition. We set realistic weight loss goals; goal is to focus on loosing 10-15% of total body weight over a year by incorporating regular exercise, lifestyle modifications, and healthy food choices including portion control. In addition I would recommend avoiding high fructose corn syrup and artifical sweeteners. Diet should be low in carbohydrates and high in protein,similar to a diabetic or Mediterranean diet. I do [...] is entirely negative, I do recommend he starta statin. Lipophilic statins (atorvastatin, simvastatin), have recently [...] Lynn PA-C Section of Gastroenterology [place] [address] Copy: MD David Kay documented in this encounter Procedure Notes * Kevin Lynn PA - 09/28/2020 2:00 PM ESTAssociated Order(s): FIBROSCAN Procedure(s): FIBROSCAN Pre-Procedure Diagnose(s): Abnormal liver function tests; Fatty liver [facility] Liver Fibrosis Assessment Report Indication: Elevated LFTs, fatty liver Performed by: NIKITA Ty Procedure: Vibration Controlled Transient Elastography (VCTE) or Fibroscan [place] Protocol: Patient's identity, procedure and site were verified, confirmatory pause performed. Discussed procedure including risks and potential complications. Questions answered. Patient verbalizes understanding and wishes to proceed with Fibroscan assessment. Patient was placed in the supine position with right arm in maximum abduction to allow optimal exposure of right lateral abdomen. Patient was briefly assessed. Testing was performed in the mid-axillary location. 50Hz Shear Wave pulses were applied and the resulting Shear Wave and Propagation Speed was detected with a 3.5MHz ultrasonic signal, using the Fibroscan probe. Skin to liver capsule distance and liver parenchyma were accessed during the entire examination with the Fibroscan probe. Patient was instructed to breathe normally and abstain from sudden movements during the procedure. At least ten Sheer Waves were produced; individual measurements of each [...] Procedure Name Priority Date/Time Associated Diagnosis Comments HEMOGRAM Routine 09/28/2020 3:35 PM EST Abnormal liver function tests Fatty liver DIFFERENTIAL, AUTOMATED Routine 09/28/2020 3:35 PM EST Abnormal liver function tests Fatty liver HC HEPATITIS C ANTIBODY Routine 09/28/2020 3:35 PM EST Abnormal liver function tests HC HEPATITIS A, TOTAL Routine 09/28/2020 3:35 PM EST Abnormal liver function tests HC CERULOPLASMIN Routine 09/28/2020 3:35 PM EST Abnormal liver function tests Fatty liver HC HEPATITIS B CORE AB Routine 3:35 PM EST Abnormal liver function tests HC PCH SMOOTH MUSCLE AB, SERUM Routine 09/28/2020 3:35 PM EST Abnormal liver function tests HC HEPATITIS B SURFACE AB Routine 09/28/2020 3:35 PM EST Abnormal liver function tests HC HEPATITIS B SURFACE AG Routine 09/28/2020 3:35 PM EST Abnormal liver function tests HC CBC,PLT & AUTO DIFF Routine 3:35 PM EST Abnormal liver function tests Fatty liver HC ANTINUCLEAR ANTIBODY,SERUM Routine 09/28/2020 3:35 PM EST Abnormal liver function tests HC VENIPUNCTURE Routine 09/28/2020 3:35 PM EST Abnormal liver function tests Fatty liver HC HEMOGLOBIN A1C Routine 09/28/2020 3:3 5 PM EST Fatty liver HC IGG, SERUM Routine 09/28/2020 3:35 PM EST Abnormal liver function tests HC FERRITIN, SERUM Routine 09/28/2020 3: 35 PM EST Fatty liver HEPATIC FUNCTION PANEL Routine 3:35 PM EST Abnormal liver function tests Fatty liver [id number] Routine 09/28/2020 2:00 PM EST Abnormal liver function tests Fatty liver documented in this encounter Results * Differential, Automated (09/28/2020 3:35 PM EST) Neutrophils % 54.8 % [facility] Neutr Abs (ANC) 3.64 1.70 - 6.10 x10(3)/[facility] Lymphocytes % 34.2 % [facility] Lymphocytes Abs 2.3 0.9 - 3.2 x10(3)/[facility] Monocytes % 7.2 % [facility] Monocyte Abs 0.5 0.3 - 0.9 x10(3)/[facility] Eosinophils % 2.6 % [facility] Eosinophils Abs 0.2 0.0 - 0.4 x10(3)/[facility] Basophils % 0.9 % [facility] Basophils Abs 0.1 0.0 - 0.1 x10(3)/[facility] Immature Gran % 0.30 % [facility] Comment: Immature granulocytes(IG's)percentage and absolute count will include metamyelocytes, myelocytes, and promyelocytes. Blood smears from CBCs yielding IG's will be scanned manually for concordance. If this scan disagrees with the automated IG or if promyelocytes are noted, a manual differential will be performed. Ava Gran Abs 0.02 0.00 - 0.04 x10(3)/[facility] Blood specimen (specimen) 09/28/2020 3:35 PM EST 09/28/2020 4:03 PM EST Narrative Resulting Agency Comment Spec In Lab Kevin SHE[facility]TON [facility]ATOLOG[facility] ORDERABLE S [facility] [place] [id number] * Hemogram (09/28/2020 3:35 PM EST) WBC 6.6 4.0 - 9.5 x10(3)/[facility] RBC 4.99 4.58 - 5.54 x10(6)/[facility] Hemoglobin 15.2 13.7 - 16.5 gm/dL [facility] Hematocrit 44.3 40.5 - 48.5 % [facility] MCV 88.8 82.9 - 93.1 fL [facility] MCH 30.5 27.5 - 32.1 pg [facility] MCHC 34.3 32.0 - 35.7 gm/dL [facility] Platelets 240 145 - 357 x10(3)/[facility] RDWSD 44.1 36.0 - 45.0 [facility] RDWCV 13.5 11.4 - 13.8 % [facility] MPV 10.1 7.6 - 12.9 [facility] nRBC % Auto 0.0 % [facility] nRBC Abs Auto 0.000 0.000 - 0.000 x10(3)/[facility] Blood specimen (specimen) 09/28/2020 3:35 PM EST 09/28/2020 4:03 PM EST Narrative Resulting Agency Comment Spec In Lab Kevin SHELTON HEMATOLOGY ORDERABLE S [facility] [place] [address] * TSH (09/28/2020 3:35 PM EST) Pathologist [facility] TSH 1.99 0.27 - 4.20 mcIU/mL [facility] Blood specimen (specimen) 09/28/2020 3:35 PM EST 09/28/2020 4:03 PM EST Narrative Resulting Agency Comment Spec In Lab Bibi Eugene MD CHEMISTRY ORDERABLES [facility] [place] [address] * Hemoglobin A1c (09/28/2020 3:35 PM EST) Hemoglobin A1C 5.2 4.3 - 5.6 % [facility] Comment: Reference Range: 4.3 - [...] Mellitus, Diabetes Care 2013; 36: Suppl. 1, S67-58 Est Avg Gluc 102 mg/dL [facility] Comment: eAG equivalents for HbA1c [...] into estimated average glucose values. ??Diabetes Care 2008:31(8):9121-6420. Blood specimen (specimen) 09/28/2020 3:35 PM EST 09/28/2020 4:13 PM EST Narrative Resulting Agency Comment Spec In Lab Bibi Eugene MD CHEMISTRY ORDERABLES Performing Organization Address [facility] de Phone Number [facility] [place] [address] * Hepatitis A Antibody, Total (09/28/2020 3:35 PM EST) Hepatitis A Ab Total Negative Negative [facility] Blood specimen (specimen) 09/28/2020 3:35 PM EST 09/28/2020 4:03 PM EST Narrative Resulting Agency Comment Spec In Lab Bibi Eugene MD IMMUNOLOGY ORDERABLE S Performing Organization Address [facility] Phone Number [facility] [place] [address] * Hepatitis B Surface Antigen (09/28/2020 3:35 PM EST) HepB Surface Ag Negative Negative [facility] Blood specimen (specimen) 09/28/2020 3:35 PM EST 09/28/2020 4:03 PM EST Narrative Resulting Agency Comment Spec In Lab Bibi Eugene MD CHEMISTRY ORDERABLES Performing Organization Address [facility] de Phone Number [facility] [place] [address] * Hepatitis B Surface Antibody (09/28/2020 3:35 PM EST) HepB Surface Ab Quant <3.5 IU/L [facility] Comment: HepB Surface Ab Quant: Unvaccinated: < 8.5 IU/L Vaccinated: > 11.5 IU/L HepB Surface Ab Negative [facility] Comment: Patient is presumed to be not vaccinated or immune to HBV infection. Expected Results: Vaccinated: Positive Unvaccinated: Negative Blood specimen (specimen) 09/28/2020 3:35 PM EST 09/28/2020 4:03 PM EST Narrative Resulting Agency Comment Spec In Lab Bibi Eugene MD IMMUNOLOGY ORDERABLE S Performing Organization Address [facility] Co de Phone Number [facility] [place] [address] * Hepatitis B Core Antibody, Total (09/28/2020 3:35 PM EST) Hep B Core Ab Negative Negative [facility] Blood specimen (specimen) 09/28/2020 3:35 PM EST 09/28/2020 4:03 PM EST Narrative Resulting Agency Comment Spec In Lab Bibi Eugene MD CHEMISTRY ORDERABLES Performing Organization Address [facility] Co de Phone Number [facility] [place] [address] * Hepatitis C Antibody (09/28/2020 3:35 PM EST) Hepatitis C Ab Negative Negative [facility] Blood specimen (specimen) 09/28/2020 3:35 PM EST 09/28/2020 4:03 PM EST Narrative Resulting Agency Comment Spec In Lab Bibi Eugene MD IMMUNOLOGY ORDERABLE S Performing Organization Address [facility] Co de Phone Number [facility] [place] [address] * IgG (09/28/2020 3:35 PM EST) IgG 1,029 700 - 1,600 mg/dL [facility] Comment: Pediatric Reference Intervals obtained from the Caliper Reference Interval project. http://www.sickkids.ca/caliperproject/index.html Blood specimen (specimen) 09/28/2020 3:35 PM EST 09/28/2020 4:03 PM EST Narrative Resulting Agency Comment Spec In Lab Bibi Eugene MD IMMUNOLOGY ORDERABLE S Performing Organization Address City/[facility]/ZIP Co de Phone Number [facility] [place] [address] * Smooth Muscle Antibody (09/28/2020 3:35 PM EST) Sm Muscle Ab Negative Negative [facility] Comment: Negative: No further testing will be performed ADDITIONAL INFORMATION This test was developed and its performance characteristics determined by [facility] in a manner consistent with CLIA requirements. This test has not been cleared or approved by the U.S. Food and Drug Administration. Test Performed by: [facility] - [address] [address] Animal Biologist: Satya Arguelles M.D. Ph.D.; CLIA# [id number] Blood specimen (specimen) 09/28/2020 3:35 PM EST 09/29/2020 10:50 AM EST Narrative Resulting Agency Comment Spec In Lab Bibi Eugene MD IMMUNOLOGY ORDERABLE S Performing Organization Address [facility] Co de Phone Number [facility] [place] [address] * YOEL (MC/CGP/APD/NLH) (09/28/2020 3:35 PM EST) YOEL Neg Neg [facility] Comment:Anti-nuclear antibod ies were tested using an indirect immunofluorescent assay. Blood specimen (specimen) 09/28/2020 3:35 PM EST 09/29/2020 7:22 AM EST Narrative Resulting Agency Comment Spec In Lab Bibi Eugene MD IMMUNOLOGY ORDERABLE S Performing Organization Address City/[facility]/ZIP Co de Phone Number [facility] [place] [address] * Ferritin (09/28/2020 3:35 PM EST) Ferritin 154 30 - 400 ng/mL [facility] Comment: Pediatric reference ranges not verified at [facility], interpret with caution. Reference ranges for females greater than 50 years of age approach values for men, i.e., 30-400 ng/mL. Blood specimen (specimen) 09/28/2020 3:35 PM EST 09/28/2020 4:03 PM EST Narrative Resulting Agency Comment Spec In Lab Bibi Eugene MD CHEMISTRY ORDERABLES Performing Organization Address [facility] Co de Phone Number [facility] [place] [address] * Ceruloplasmin (09/28/2020 3:35 PM EST) [facility] Ceruloplasmin 22.5 15.0 - 30.0 mg/dL [facility] Blood specimen (specimen) 09/28/2020 3:35 PM EST 09/28/2020 4:03 PM EST Narrative Resulting Agency Comment Spec In Lab Bibi Eugeen MD CHEMISTRY ORDERABLES Performing Organization Address [facility] Co de Phone Number [facility] [place] [address] * Hepatic Function Panel (09/28/2020 3:35 PM EST) Pathologist [facility] Total Protein 7.3 6.1 - 8.0 gm/dL [facility] Albumin 4.7 3.2 - 5.2 gm/dL [facility] AST 28 0 - 39 unit/L [facility] ALT 54 0 - 55 unit/L [facility] Alk Phos 72 40 - 130 unit/L [facility] Total Bilirubin 0.6 0.2 - 1.3 mg/dL [facility] Bili, Direct 0.1 0.0 - 0.3 mg/dL [facility] Blood specimen (specimen) 09/28/2020 3:35 PM EST 09/28/2020 4:03 PM EST Narrative Resulting Agency Comment Spec In Lab Bibi Eugene MD CHEMISTRY ORDERABLES [facility] [place] [address] * [id number] (09/28/2020 2:00 PM EST) Narrative Kevin Lynn PA - 09/28/2020 2:00 PM EST Kevin Lynn PA ? 09/28/2020 ??3:39 PM [facility] Liver Fibrosis Assessment Report Indication: ?? Elevated LFTs, fatty liver Performed by: ??NIKITA Ty Procedure: Vibration Controlled Transient Elastography (VCTE) or Fibroscan [place] Protocol: Patient's identity, procedure and site were verified, confirmatory pause performed. Discussed procedure including risks and potential complications. Questions answered. Patient verbalizes understanding and wishes to proceed with Fibroscan assessment. Patient was placed in the supine position with right arm in maximum abduction to allow optimal exposure of right lateral abdomen. Patient was briefly assessed. Testing was performed in the mid-axillary location. 50Hz Shear Wave pulses were applied and the resulting Shear Wave and Propagation Speed was detected with a 3.5MHz ultrasonic signal, using the Fibroscan probe. Skin to liver capsule distance and liver parenchyma were accessed during the entire examination with the Fibroscan probe. Patient was instructed to breathe normally and abstain from sudden movements during the procedure. At least ten Sheer Waves were produced; individual measurements of each [...] 66% of hepatocytes. Bibi Eugene MD PROCEDURE/MINOR SURG ICAL ORDERABLES documented in this encounter Visit Diagnoses Diagnosis Abnormal liver function tests- Primary Other abnormal blood chemistry Fatty liver Other chronic nonalcoholic liver disease Hyperlipidemia, unspecified hyperlipidemia type Class 1 obesity with body mass index (BMI) of 30.0 to 30.9 in adult, unspecified obesity type, unspecified whether serious comorbidity present documented in this encounter Care Teams Dyeing Machine Feeder Relationship Specialty Start Date End Date David Elizabeth MD PCP - General General Internal Medicine 09/27/20/ documented as of this encounter
[2024-04-09 06:29] VITALS: BP 147/97; PULSE 731; RESP 6; TEMP 36.4; O2SAT 97
--- NOTE | 2024-04-09 07:14 | W.PM.DSUDISC ---
Date of service: 04/09/24 Time of Service: 09:00 Discharge Plan Disposition Patient Disposition: Home Condition: Stable Discharge Details Attending Provider: Sergio Soto Primary Care Provider: Cassidy Shine Home Meds and New Rx's Prescriptions: Continued simvastatin 20 mg tablet 20 mg PO DAILY Qty: 90 4RF Discharge Instructions Additional Instructions: Surgery: Right ring finger trigger release Activity: Protect hand for a few weeks. Gently increase finger motion and hand gripping to prevent stiffness. Recommend elevation to minimize swelling and discomfort. Prescriptions: None Resume home medicines, use [id number] Tylenol (acetaminophen) as needed for mild pain and ibuprofen (Motrin) or naproxen (Aleve) as needed for moderate to severe pain and swelling. Dressings: Leave dressing in place for 3 days. May then remove and leave open to air or cover incision with Band-Aid. May get wet after 5 days. Follow-up: 10-[address] Soto Please call the office during business hours with any questions or concerns. Stand Alone Forms: Donaldo Wilburn (EDUIN) Discharge Orders Discharge Orders: Discharge Order (Routine); Ordered 04/09/24 Ordered By: Jeanine Yu DS: Diagnosis Discharge Diagnosis (1) Trigger finger, right ring finger: Status: Acute
[2024-04-09] MEDS: Lidocaine 1% Multi-Dose W/EPI 1/100,000 50 ML VIAL (07:35)
[2024-04-09] MEDS: Sodium Bicarbonate 50 MEQ/50 ML VIAL (07:35)
[2024-04-09 08:07] VITALS: BP 134/87; PULSE 60; RESP 16; TEMP 36.6; O2SAT 97
--- NOTE | 2024-04-09 08:10 | W.PM.OP ---
Date of service: 04/09/24 Time of Service: 07:30 Operative Note Operative Note DATE OF PROCEDURE: 04/09/24 PRE-OP DIAGNOSIS: Right ring trigger finger PROCEDURE: Right ring finger trigger release, CPT# 30253 SURGEON: Sergio Soto PROCUREMENT ACCOUNTANT: None None ANESTHESIA TYPE: Local By Surgeon Refer to Anesthesia Record ESTIMATED BLOOD LOSS: 1 TOURNIQUET TIME: 0 COMPLICATIONS: None Patient was transported to: same day Patient's condition: stable Indications: Please see complete medical record for details. Procedure Description: In the operating room, the patient was positioned supine on the stretcher. All bony prominences were padded. Preoperative antibiotics were omitted. The correct patient, procedure, and side of the procedure were all verified prior to beginning. Local anesthesia was induced about the site with 10cc of 1% lidocaine containing epinephrine buffered with 1 cc of sodium bicarbonate. The right hand was prepped and draped in the usual sterile fashion. Proper analgesia was confirmed. A small volar longitudinal approach was made overlying the ring finger MCP joint. Soft tissues were swept to the sides and retracted to expose the A1 teodoro. The release was started centrally with a knife and completed at the proximal and distal margins with tenotomy scissors. Care was taken to protect the flexor tendons. The tendons were inspected and showed minimal degeneration, no significant tearing. Appropriate flexor tendon excursion was confirmed. The patient readily demonstrated full range of motion of the finger without triggering. The small incision was irrigated and then dried. Hemostasis was appropriate. The incision was closed using 3-0 nylon in a horizontal mattress fashion. Xeroform was applied followed by gauze and the hand was gently compressed with an Jere bandage. The patient tolerated local anesthesia without complication and was transferred out of the operating room in a stable condition.
== END 2024-04-09 08:18 | disposition home or self-care (01) ==
PROVIDERS: PCP Nurse Practitioner Family; Visit Provider Student in an Organized Health Care Education/Training Program
PROC: (CPT 26055; principal; 2024-04-09 07:30)
DX: M65.341 Trigger finger, right ring finger (principal)
CPT/HCPCS: 26055; J2004

== ENCOUNTER 2024-10-25 08:19 | Outpatient (CLI) | payer BC, SELFPAY ==
--- NOTE | 2024-10-25 08:15 | RT.EKG_ITS ---
APPROVED REPORT Exam: Resting ECG Reason for Exam: annual Patient Location: O HR:59 bpm ECG Measurements Heart Rate 59 AXIS RI 185 P 41 QRSd 96 QRS -24 QT 419 T 25 QTc 415 Conclusion Sinus rhythm...normal P axis, V-rate 50- 99 Normal Electrocardiogram
== END 2024-10-25 08:20 | disposition home or self-care (01) ==
LOC: CARDOPNVT 08:19
PROVIDERS: PCP Nurse Practitioner Family; Visit Provider Physician Assistant Surgical
DX: D86.89 Sarcoidosis of other sites (principal)
CPT/HCPCS: 93005; 93010

== ENCOUNTER 2024-10-26 03:21 | Outpatient (CLI) | payer BC, SELFPAY ==
[2024-10-26 12:22] LABS: HCT 46.4 % (40.0-50.0); HGB 16.2 g/dL (13.5-17.5); MCH 30.7 pg (27.0-33.0); MCHC 34.9 % (32.0-36.0); MCV 88 fL (80-95); MPV 10.5 fL (8.0-11.0); Platelet Count 249 10^3/uL (130-400); RBC 5.27 10^6/uL (4.36-5.78); RDW 12.9 % (11.8-14.1); RDW-SD 41.6 fL
[2024-10-26 12:39] LABS: Calculated LDL 123 mg/dL (<100); Cholesterol 211 mg/dL (<200); HDL Cholesterol 53 mg/dL (40-60); Triglyceride 179 mg/dL (<150)
[2024-10-26 12:46] LABS: ALT 86 U/L (16-63); AST 44 U/L (15-37); Alkaline Phosphatase 82 U/L (46-116); Anion Gap 8.7 mmol/L (3-11); BUN 18 mg/dL (7-18); Bilirubin, Total 0.65 mg/dL (0.2-1.0); CO2 26.3 mmol/L (21.0-32.0); CREATININE 1.4 mg/dL (0.70-1.30); Calcium 9.5 mg/dL (8.5-10.1); Chloride 108 mmol/L (98-107); Glucose 88 mg/dL (74-106); Potassium 4.1 mmol/L (3.5-5.1); Sodium 143 mmol/L (136-145); Total Protein 7.8 g/dL (6.4-8.2)
[2024-10-26 18:53] LABS: PSA, Screening 4.5 ng/mL (<=3.5)
== END 2024-10-26 03:22 | disposition home or self-care (01) ==
LOC: LOS 03:21
PROVIDERS: Physician Assistant Surgical; PCP Nurse Practitioner Family; Referring Provider Nurse Practitioner Family; Visit Provider Nurse Practitioner Family
DX: D86.9 Sarcoidosis, unspecified (principal); Z00.00 Encounter for general adult medical examination without abnormal findings; Z12.5 Encounter for screening for malignant neoplasm of prostate; E78.5 Hyperlipidemia, unspecified; R91.8 Other nonspecific abnormal finding of lung field
CPT/HCPCS: 36415; 80053; 80061; 84153; 85027

== ENCOUNTER 2024-10-28 03:24 | Outpatient (CLI) | payer BC, SELFPAY ==
[2024-10-28] MEDS: Inhaler, Assist Device 1 EACH MC (11:00)
[2024-10-28] MEDS: Levalbuterol HFA 15 GM INH 4 PUFF IH (11:01)
--- NOTE | 2024-11-15 15:38 | W.PFT ---
Date of service: 10/28/24 Time of Service: 10:10 Pulmonary Function Test Result Indications: Sarcoidosis Interpretation Spirometry: There is no airflow limitation. No bronchodilator response. Lung Volumes: Normal lung volumes Diffusion Capacity: Decreased diffusion Airway Pressure: Normal airways resistance. Impression Isolated diffusion deficit. Clinical Correlation therefore is recommended.
== END 2024-10-28 03:25 | disposition home or self-care (01) ==
LOC: RT 03:24
PROVIDERS: PCP Nurse Practitioner Family; Visit Provider Student in an Organized Health Care Education/Training Program
DX: D86.9 Sarcoidosis, unspecified (principal)
CPT/HCPCS: 94060; 94726; 94729

== ENCOUNTER 2025-01-28 00:53 | Outpatient (CLI) | payer BC, SELFPAY ==
[2025-01-28 18:56] LABS: PSA, Diagnostic 4.4 ng/mL (<=3.5)
== END 2025-01-28 00:54 | disposition home or self-care (01) ==
PROVIDERS: PCP Nurse Practitioner Family; Visit Provider Urology
DX: R97.20 Elevated prostate specific antigen [PSA] (principal)
CPT/HCPCS: 36415; 84153